=== PATIENT | male | born 1985 | race Two or more races ===

== ENCOUNTER 2017-11-04 02:47 | Emergency (ER) | payer OTHER ==
[2017-11-04 04:18] VITALS: TEMP 99.1; BMI 26.6
--- NOTE | 2017-11-04 04:22 | PDOC ---
Attending Attestation - HPI HPI: 11/04/17 04:34 The patient is a 32 year old male, with a significant past medical history of anxiety and depression, who presents to the emergency department with, 2 days of a headache. As per patient, his headache is localized to the frontal region. The patient also feels dehydrate. He endorses urinary frequency which he claims to be similar a previous episode of a sexually transmitted disease he experienced many years ago. He denies any recent fevers, chills, headache or dizziness. He denies any recent nausea, vomit, diarrhea or constipation. He denies any recent chest pain or shortness of breath. He denies any recent dysuria, urgency or hematuria. Allergies: NKA <GoberdanValeriynie - Last Filed: 11/04/17 04:34> - Resident Resident Name: Marisela Holbrook - ED Attending Attestation I have performed the following: I have examined & evaluated the patient, The case was reviewed & discussed with the resident, I agree w/resident's findings & plan, Exceptions are as noted - Physicial Exam PE: 11/04/17 19:31 *Physical Exam General Appearance: Yes: Appropriately Dressed. No: Apparent Distress, Intoxicated HEENT: positive: EOMI, AC, Normal ENT Inspection, Normal Voice, TMs Normal, Pharynx Normal. negative: Pale Conjunctivae, Photophobia, Scleral Icterus (R), Scleral Icterus (L) Neck: positive: Trachea midline, Normal Thyroid, Supple. negative: Tender, Rigid, Carotid bruit, Stridor, Lymphadenopathy (R), Lymphadenopathy (L), Thyromegaly Respiratory/Chest: positive: Lungs Clear, Normal Breath Sounds. negative: Chest Tender, Respiratory Distress, Accessory Muscle Use, Labored Respiration, RES, Crackles, Rales, Rhonchi, Stridor, Wheezing, Dullness Cardiovascular: positive: Regular Rhythm, Regular Rate, S1, S2. negative: Edema , JVD, Murmur, Bradycardia, Tachycardia Vascular Pulses: Dorsalis-Pedis (R): 2+, Doralis-Pedis (L): 2+ Gastrointestinal/Abdominal: positive: Normal Bowel Sounds, Flat, Soft. negative : Tender, Organomegaly, Pulsatile Mass, Increased Bowel Sounds, Decreased BS, Distended, Guarding, Rebound, Hernia, Hepatomegaly, Spleenomegaly Lymphatic: negative: Adenopathy, Tenderness Musculoskeletal: positive: Normal Inspection. negative: CVA Tenderness, Decreased Range of Motion Extremity: positive: Normal Capillary Refill, Normal Inspection, Normal Range of Motion, Pelvis Stable. negative: Tender, Pedal Edema, Swelling, Erythema Integumentary: positive: Normal Color, Dry, Warm. 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 negative: EOM Palsy, Facial Droop, Sensory Deficit - Medical Decision Making 11/04/17 19:32 patient was treated and released <Reese Wilson - Last Filed: 11/04/17 19:32> Attestations - Attestations 11/04/17 04:34 Documentation prepared by Yolanda Boland, acting as nurses medical assistants phlebotomists for Reese Wilson DO. <Yolanda Boland - Last Filed: 11/04/17 04:34>
[2017-11-04] MEDS ORDERED: IBUPROFEN 400 MG TABLET (FP) PO ONE ×2 (04:25→04:33)
[2017-11-04] MEDS ORDERED: SODIUM CHLORIDE 0.9% 500 ML INFUS.BAG IV ONE (04:25)
[2017-11-04] MEDS ORDERED: ONDANSETRON *ODT* 4 MG TABLET SL ONE (04:32)
--- NOTE | 2017-11-04 04:44 | PDOC ---
History of Present Illness - General Chief Complaint: Headache Stated Complaint: HEADACHE Time Seen by Provider: 11/04/17 03:53 - History of Present Illness Initial Comments: Ten Walter is a 32yo man with a PMH of depression/anxiety, hiatal hernia s/p repair with Ragsdale's esophagus, self-reported ANJEL (never tested) who presents with severe frontal headache, subjective thirst, and urinary frequency for the past several days. He reports that when he woke up this morning his headache was especially severe. He took excedrin in the morning as well as motrin in the afternoon without any improvement. He states that the pain is severe to the point that he feels like he "almost needs to throw up." He denies any episodes of vomiting. He has not had light or sound sensitivity. He describes the headache as a throbbing, non-radiating pain. Mr Walter did have recent ear and throat pain, but this resolved prior to the current headache. He denies any current nasal/sinus congestion, runny nose, sore throat, or difficultly breathing. He does have an occasional dry cough. He also endorses frequent acid reflux; he has not had heartburn since his hiatal hernia repair 2 years ago, but it has recently recurred. He also mentions several times that he has a history of anxiety and was very worried that his headache had been present for several days. He denies any constitutional symptoms, and specifically has not had any fever, shaking chills, or general malaise. In addition to the headache, he notes feeling very dry though he has been drinking "a lot" of water recently. He also reports urinary frequency, and states that he needs to urinate 2x-3x more than normal. Mr Walter reports that he had a similar symptom of urinary frequency when diagnosed with GC/chlamydia as a teenager and requests to be tested today. He denies any penile discharge, lesions, rash, swelling, or pain. Past History - Past Medical History Allergies/Adverse Reactions: Allergies Allergy/AdvReac Type Severity Reaction Status Date / Time metoclopramide HCl Allergy Verified 11/04/17 04:15 [From Reglan] Penicillins Allergy Verified 11/04/17 04:15 Home Medications: Ambulatory Orders Doxycycline Monohydrate [Mondoxyne Nl] 100 mg PO BID #20 capsule 11/04/17 - Surgical History Abdominal Surgery: Yes (HIATEL HERNIA) Cholecystectomy: Yes - Suicide/Smoking/Psychosocial Hx Smoking History: Never smoked Have you smoked in the past 12 months: No Information on smoking cessation initiated: No Hx Alcohol Use: No Drug/Substance Use Hx: No Review of Systems - Review of Systems Comments:: General: No fevers, no chills, no weight or appetite change, no malaise HEENT: No changes in vision, no changes in hearing, no congestion, no sore throat CV: No chest pain, no palpitations, no LE edema Pulm: No SOB, no wheezing. +Dry cough GI: No nausea or vomiting, no change in bowel habits, no melena. +frequent heartburn, +h/o hiatal hernia : No urgency, no dysuria. +h/o frequency Musc: No back pain, no joint swelling, no recent injury Skin: No rash, no lesions, no erythema Endo: no heat/cold intolerance. +h/o increased thirst Heme: No unusual bruising or bleeding, no swollen glands Neuro: No syncope, no numbness/tingling, no focal weakness Vasc: No claudication Psych: +h/o anxiety, +h/o depression. No SI, no HI. *Physical Exam - Vital Signs Last Vital Signs Temp Pulse Resp BP Pulse Ox 99.1 F 85 20 157/84 98 11/04/17 02:55 11/04/17 02:55 11/04/17 02:55 11/04/17 02:55 11/04/17 02:55 - Physical Exam Comments: General: Comfortable, no acute distress HEENT: PERRL, EOMI, MMM, voice normal, normal neck ROM, no LAD Cards: RRR, no murmur appreciated Pulm: Comfortable on room air, clear to auscultation bilaterally Abd: Soft, nontender, nondistended Ext: Atraumatic. No LE edema. ROM intact. Strength 5/5 and equal bilaterally Vasc: Extremities WWP. Palpable radial and pedal pulses bilaterally Neuro: A&Ox3, CN grossly intact, normal speech, motor/sensory grossly intact and symmetric Psych: Mood appropriate to situation Medical Decision Making - Medical Decision Making 11/04/17 04:46 Ten Walter is a 32yo man with a PMH of anxiety, depression, hiatal hernia s/p repair and Ragsdale's esophagus who presents today complaining of frontal headache for 3 days in addition to urinary frequency and increased thirst. - No s/s of URI or sinus infection on history or physical exam. No light/sound intolerance suggesting migraine. Most likely a tension headache. Ibuprofen and zofran ordered as he is c/o mild nausea in additional to DUMONT pain - Feels subjectively dehydrated though does not appear dry on exam. 1L NS bolus ordered; slight dehydration could be contributing to headache - UA ordered due to complaint of frequency, though no other symptoms to suggest UTI. GC/chlamydia ordered per request. Given excessive thirst and urination, can also r/o signs of DM based on UA results. - Will reassess following meds. 11/04/17 06:45 - Feels improved following ibuprofen, zofran, fluid bolus - UA with 48 WBC, +leuk esterase. GC/chylamydia pending. Given rarity of uncomplicated UTI in a young man, will treat for GC/chlamydia - Pen allergic - 1g azithromycin, 100mg doxycycline given in the ED. Will prescribe 10 days doxycycline at home. - Discussed with patient, advised to inform sexual partners. Will need to call or follow up for results. - Mr Walter reports understanding and agrees with this plan. Seen and discussed with Dr Wilson. *DC/Admit/Observation/Transfer Diagnosis at time of Disposition: UTI (urinary tract infection) Qualifiers: Urinary tract infection type: site unspecified Hematuria presence: without hematuria Qualified Code(s): N39.0 - Urinary tract infection, site not specified - Discharge Dispostion Disposition: HOME Condition at time of disposition: Good Decision to Admit order: No - Prescriptions Prescriptions: Doxycycline Monohydrate [Mondoxyne Nl] 100 mg PO BID #20 capsule - Referrals Referrals: Weston Fountain MD [Staff Physician] - - Patient Instructions Printed Discharge Instructions: DI for Urinary Tract Infection (UTI), DI for Chlamydia, DI for Gonorrhea Additional Instructions: Discharge Instructions: - You were seen in the ED for headache, urinary frequency, and thirst. - Your urine test showed a likely infection. It is unclear what cause this infection, and some test results are not back yet. You were started on antibiotics before discharge, and you will need to continue antibiotics for the next 10 days. Please finish this prescription even if you feel better. - You will need to call or return to [facility] to get your gonorrhea and chlamydia test results. Please remember to inform any sexual partners if these tests are positive. - Your headache may be related to the infection or to tension. You may take 600mg ibuprofen (advil, motrin) every 8 hours. This may be alternated with acetaminophen (tylenol) if needed for additional pain control. If your headaches continue, please see your primary physician within the next 1-2 weeks. - Return to the ED if your symptoms do not improve, you have fevers to 101F or shaking chills, or you notice blood in your urine. - Post Discharge Activity
[2017-11-04] MEDS ORDERED: ONDANSETRON *ODT* 4 MG TABLET ONE (05:40)
[2017-11-04 05:44] LABS: URINE APPEARANCE CLEAR; URINE BILIRUBIN NEGATIVE (<2.0 mg/dL); URINE COLOR LTYELLOW; URINE GLUCOSE (UA) NEGATIVE (NEGATIVE); URINE KETONE NEGATIVE (NEGATIVE); URINE NITRITE NEGATIVE (NEGATIVE); URINE PROTEIN NEGATIVE (NEGATIVE); URINE UROBILINOGEN NEGATIVE mg/dL (0.2-1.0)
[2017-11-04 05:48] LABS: URINE LEUK ESTERASE 1+ (NEGATIVE)
[2017-11-04 05:50] LABS: URINE BACTERIA FEW /hpf (NONE SEEN); URINE MUCUS RARE
[2017-11-04] MEDS ORDERED: AZITHROMYCIN 1 GM PACKET PO ONE (06:42)
[2017-11-04] MEDS ORDERED: DOXYCYCLINE HYCLATE 100 MG CAPSULE PO ONE ×2 (06:43→06:54)
[2017-11-04] MEDS ORDERED: AZITHROMYCIN 250 MG TABLET ONE (06:54)
[2017-11-04 07:38] VITALS: BP 138/93; PULSE 79
== END 2017-11-04 07:38 | disposition home or self-care (01) ==
LOC: JER 02:47
PROC: 3E0337Z Introduction of Electrolytic and Water Balance Substance into Peripheral Vein, Percutaneous Approach (ICD-10-PCS; principal; 2017-11-04)
DX: N39.0 Urinary tract infection, site not specified (principal); K22.70 Barrett's esophagus without dysplasia; F41.8 Other specified anxiety disorders
CPT/HCPCS: 36415; 81003; 81015; 87491; 87591; 99281-25; Q0162

== ENCOUNTER 2018-03-22 14:06 | Emergency (ER) | payer SELFPAY ==
[2018-03-22 14:18] VITALS: BP 131/80; PULSE 97; TEMP 98.2; BMI 26.9
--- NOTE | 2018-03-22 14:25 | PDOC ---
History of Present Illness - General Chief Complaint: Injury Stated Complaint: INJURY Time Seen by Provider: 03/22/18 14:25 History Source: Patient Exam Limitations: No Limitations - History of Present Illness Initial Comments: 03/22/18 15:01 32 yo M w/ no sig PMHx comes in c/o 1 week of R foot pain. Pt was playing basketball and twisted his R foot, heard a pop but thought the pain would go away. Pain is worse with ambulation, no numbness/tingling, no weakness, no knee pain, no ankle pain, no other injury, denies head trauma. Pt has not taken any meds for pain at home. 03/22/18 15:33 Past History - Past Medical History Allergies/Adverse Reactions: Allergies Allergy/AdvReac Type Severity Reaction Status Date / Time metoclopramide HCl Allergy Verified 03/22/18 14:26 [From Reglan] Penicillins Allergy Verified 03/22/18 14:26 Home Medications: Ambulatory Orders NK [No Known Home Medication] 03/22/18 COPD: No - Surgical History Abdominal Surgery: Yes (HIATEL HERNIA) Cholecystectomy: Yes - Suicide/Smoking/Psychosocial Hx Smoking History: Never smoked Have you smoked in the past 12 months: No Information on smoking cessation initiated: No Hx Alcohol Use: No Drug/Substance Use Hx: No Review of Systems - Review of Systems Able to Perform ROS?: Yes Constitutional: No: Chills, Fever, Malaise, Night Sweats HEENTM: No: Eye Pain, Recent change in vision, Throat Pain Respiratory: No: Cough, Shortness of Breath Cardiac (ROS): No: Chest Pain, Palpitations, Chest Tightness ABD/GI: No: Diarrhea, Nausea, Vomiting, Abdominal cramping : No: Dysuria, Hematuria Musculoskeletal: No: Back Pain Integumentary: No: Rash Neurological: No: Headache, Numbness, Dizziness Psychiatric: No: Change in Appetite Endocrine: No: Unexplained Weight Loss *Physical Exam - Vital Signs Last Vital Signs Temp Pulse Resp BP Pulse Ox 98.2 F 97 H 16 131/80 98 03/22/18 14:06 03/22/18 14:06 03/22/18 14:06 03/22/18 14:06 03/22/18 14:06 - Physical Exam General Appearance: Yes: Nourished. No: Apparent Distress HEENT: positive: AC, Normal ENT Inspection, Normal Voice. negative: Pale Conjunctivae, Scleral Icterus (R), Scleral Icterus (L) Neck: positive: Supple. negative: Decreased range of motion, Tender midline Respiratory/Chest: negative: Respiratory Distress, Accessory Muscle Use Cardiovascular: positive: Regular Rate Musculoskeletal: positive: Normal Inspection, Other (R foot with mild bruising and tenderness laterally near tarsal bones, no skin breaks. FROM R foot and R ankle. R ankle without tenderness, no swelling, 5/5 strength. RLE full sensory function. NVI. Good cap refill, good pulses. R knee without swelling, no tenderness, FROM). negative: Decreased Range of Motion Extremity: positive: Normal Capillary Refill, Normal Inspection, Normal Range of Motion. negative: Tender, Pedal Edema Integumentary: positive: Normal Color, Dry. negative: Jaundice, Rash Neurologic: positive: Fully Oriented, Alert, Normal Mood/Affect Moderate Sedation - Procedure Monitoring Vital Signs: Procedure Monitoring Vital Signs Temperature 98.2 F 03/22/18 14:06 Pulse Rate 97 H 03/22/18 14:06 Respiratory Rate 16 03/22/18 14:06 Blood Pressure 131/80 03/22/18 14:06 O2 Sat by Pulse Oximetry (%) 98 03/22/18 14:06 Medical Decision Making - Medical Decision Making 03/22/18 15:43 32 yo M with foot injury s/p playing basketball, will do a foot xrayt, give motrin and reassess 03/22/18 15:59 Xrays negative. Pt placed in Jim wrap ortho follow up PRN Return for worsening/concerning symptoms WBAT Motrin as needed for pain Pt verbalizes understanding and agrees with plan *DC/Admit/Observation/Transfer Diagnosis at time of Disposition: Injury of foot Qualifiers: Encounter type: initial encounter Laterality: right Qualified Code(s): S99.921A - Unspecified injury of right foot, initial encounter - Referrals Referrals: ON STAFF,NOT [Primary Care Provider] - Sheldon Maneul DO [Staff Physician] - - Patient Instructions Additional Instructions: You may take ibuprofen 600mg 3 times a day as needed for pain and inflammation. Return for worsening/concerning symptoms. Make an appointment with the orthopedist next week, for reassessment. - Post Discharge Activity
[2018-03-22] MEDS ORDERED: IBUPROFEN 600 MG TABLET (FP) PO ONE ×2 (14:33→14:38)
== END 2018-03-22 16:25 | disposition home or self-care (01) ==
LOC: JER 14:06
DX: S99.922A Unspecified injury of left foot, initial encounter (principal); X50.1XXA Overexertion from prolonged static or awkward postures, initial encounter; Y93.67 Activity, basketball; Y92.310 Basketball court as the place of occurrence of the external cause; Y99.8 Other external cause status
CPT/HCPCS: 73630-TC-RT-FY; 99281-25

== ENCOUNTER 2018-06-23 01:07 | Emergency (ER) | payer OTHER ==
[2018-06-23 02:05] VITALS: BP 160/93; PULSE 99; TEMP 98.1; BMI 26.6
--- NOTE | 2018-06-23 02:12 | PDOC ---
*Physical Exam - Vital Signs Last Vital Signs Temp Pulse Resp BP Pulse Ox 98.1 F 99 H 18 160/93 99 06/23/18 01:20 06/23/18 01:20 06/23/18 01:20 06/23/18 01:20 06/23/18 01:20 ED Treatment Course - LABORATORY CBC & Chemistry Diagram: 06/23/18 02:43 06/23/18 02:43 Medical Decision Making - Medical Decision Making 06/23/18 02:12 Patient seen by the advanced practice provider under my direct supervision. Ancillary testing reviewed as necessary. I agree with plan as outlined by the advanced practice provider. *DC/Admit/Observation/Transfer Diagnosis at time of Disposition: Atypical chest pain - Discharge Dispostion Disposition: HOME Condition at time of disposition: Stable - Referrals - Patient Instructions Printed Discharge Instructions: DI for Atypical Chest Pain Additional Instructions: Low-salt diet. Keep well-hydrated. Make an appointment with her primary doctor for reevaluation of your chest pain. Return to emergency department for any new or worsening symptoms. The gonorrhea and chlamydia testing will not be completed for the next few days. You may call and leave message for return phone call with lab results. Be sure to be clear with your name, birthdate, and phone number Always use condoms with the partners - Post Discharge Activity
[2018-06-23] MEDS ORDERED: ASPIRIN 81 MG CHEWABLE TABLETS PO ONE (02:21)
--- NOTE | 2018-06-23 02:21 | PDOC ---
History of Present Illness - General Chief Complaint: Chest Pain Stated Complaint: CHEST PAIN,NUMBNESS,SOB Time Seen by Provider: 06/23/18 02:02 History Source: Patient Exam Limitations: No Limitations - History of Present Illness Initial Comments: 06/23/18 02:15 HISTORY OF PRESENT ILLNESS: This 32-year-old male past medical history of anxiety and depression who presents emergency department for evaluation of diffuse chest pain which started on 06/17. Patient reports the pain came on as a pressure and has occasional sharp sensations. Patient reports the pain is accompanied by occasional nausea. Patient reports the pain is different than his usual anxiety attack was concerned that he has had no relief of symptoms. Patient sought care at another emergency department yesterday the left prior to evaluation. Patient is also concerned that he has intermittent hand stiffness and a pins and needle sensation. The sensation lasts for a brief period of time and then spontaneously resolves. Patient denies any maternal family history of early heart disease. Patient is unsure of father's family history. Patient also reports increased urinary frequency and a tingling sensation when he ejaculates. Patient is requesting gonorrhea and chlamydia testing. No recent travel or sick contacts. PAST MEDICAL HISTORY: see HPI SURGICAL HISTORY: Denies ALLERGIES: Penicillin, Reglan REVIEW OF SYSTEMS General/Constitutional: Denies fever or chills. Denies weakness, weight change. HEENT: Denies change in vision. Denies ear pain or discharge. Denies sore throat. Cardiovascular: see HPI Respiratory: Denies cough, wheezing, or hemoptysis. Gastrointestinal: Denies nausea, vomiting, diarrhea or constipation. Denies rectal bleeding. Genitourinary: Denies dysuria, frequency, or change in urination. Musculoskeletal: Denies joint or muscle swelling or pain. Denies neck or back pain. Skin and breasts: Denies rash or easy bruising. Neurologic: Denies headache, vertigo, loss of consciousness, or loss of sensation. Psychiatric: Denies depression or anxiety. Endocrine: Denies increased thirst. Denies abnormal weight change. Hematologic/Lymphatic: Denies anemia, easy bleeding, or history of blood clots. Allergic/Immunologic: Denies hives or skin allergy. Denies latex allergy. PHYSICAL EXAM General Appearance: Well-appearing, appropriately dressed. No apparent distress , no intoxication. HEENT: EOMI, PERRLA, normal ENT inspection, normal voice, TMs normal, pharynx normal. No conjunctival pallor. No photophobia, scleral icterus. Neck: Supple. Trachea midline. No tenderness, rigidity, carotid bruit, stridor , lymphadenopathy, or thyromegaly. Respiratory/Chest: Lungs CTAB. No shortness of breath, chest tenderness, respiratory distress, accessory muscle use. No crackles, rales, rhonchi, stridor , wheezing, dullness Cardiovascular: RRR. S1, S2. No JVD, murmur, bradycardia, tachycardia. Vascular Pulses: Dorsalis-Pedis (R): 2+, Dorsalis-Pedis (L): 2+ Gastrointestinal/Abdominal: Normal bowel sounds. Abdomen soft, non-distended. No tenderness or rebound tenderness. No organomegaly, pulsatile mass, guarding, hernia, hepatomegaly, splenomegaly. Genital: Uncircumcised penis. No discharge or drainage from urinary meatus. Testicular exam reveals no erythema masses or lesions present. Cremasteric reflex present bilaterally Lymphatic: No adenopathy, tenderness. Musculoskeletal/Extremities: Normal inspection. FROM of all extremities, normal capillary refill. Pelvis Stable. No CVA tenderness. No tenderness to extremities, pedal edema, swelling, erythema or deformity. Integumentary: Appropriate color, dry, warm. 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 Fully oriented, alert. Appropriate mood/affect. Motor strength 5/5. No appreciable EOM palsy, facial droop or sensory deficit. Presenting Symptoms: Chest Pain Timing/Duration: reports: constant Severity/Quality: reports: aching, sharp Location: reports: central Chest Pain Radiation: reports: no radiation Activities at Onset: reports: none Prior Chest Pain/Cardiac Workup: reports: No prior chest pain Nitro Today/Relief: Yes: no nitro taken today Aspirin Received prior to arrival (Core Measure): Yes: no aspirin today Beta Rut given by EMS (Core Measure): No Beta Rut taken at Home (Core Measure): No Past History - Past Medical History Allergies/Adverse Reactions: Allergies Allergy/AdvReac Type Severity Reaction Status Date / Time metoclopramide HCl Allergy Verified 06/23/18 02:04 [From Reglan] Penicillins Allergy Verified 06/23/18 02:04 Home Medications: Ambulatory Orders NK [No Known Home Medication] 03/22/18 COPD: No - Surgical History Abdominal Surgery: Yes (HIATEL HERNIA) Cholecystectomy: Yes - Suicide/Smoking/Psychosocial Hx Smoking History: Never smoked Have you smoked in the past 12 months: No Information on smoking cessation initiated: No Hx Alcohol Use: No Drug/Substance Use Hx: No *Physical Exam - Vital Signs Last Vital Signs Temp Pulse Resp BP Pulse Ox 98.1 F 99 H 18 160/93 99 06/23/18 01:20 06/23/18 01:20 06/23/18 01:20 06/23/18 01:20 06/23/18 01:20 Heart Score/ECG Review - History History: Slightly suspicious - Electrocardiogram EKG: Normal - Age Age: </= 45 - Risk Factors Based on the list above the patient has:: No risk factors known - Troponin Troponin: </= normal limit - Score Heart Score - Total: 0 - ECG Intrepretation Rhythm: Regular Rhythm ED Treatment Course - LABORATORY CBC & Chemistry Diagram: 06/23/18 02:43 06/23/18 02:43 - ADDITIONAL ORDERS Additional order review: Laboratory Results 06/23/18 06/23/18 06/23/18 03:16 02:43 02:43 PT with INR 12.60 INR 1.07 Sodium 140 Potassium 4.8 Chloride 103 Carbon Dioxide 29 Anion Gap 8 BUN 15 Creatinine 1.0 Creat Clearance w eGFR 86.06 Random Glucose 100 Calcium 9.1 Magnesium 2.0 Total Bilirubin 0.3 AST 32 ALT 49 Alkaline Phosphatase 91 Creatine Kinase 100 Troponin I < 0.02 Total Protein 8.0 Albumin 4.4 Urine Color Yellow Urine Appearance Clear Urine pH 5.5 Ur Specific [place] 1.023 Urine Protein Negative Urine Glucose (UA) Negative Urine Ketones Trace H Urine Blood Negative Urine Nitrite Negative Urine Bilirubin Negative Urine Urobilinogen 0.2 Ur Leukocyte Esterase Trace Urine WBC (Auto) 7 Urine RBC (Auto) 1 Urine Casts (Auto) 4 U Epithel Cells (Auto) 0.6 Urine Bacteria (Auto) 0.7 06/23/18 02:43 RBC 5.10 MCV 89.9 MCHC 33.3 RDW 13.7 MPV 8.9 Neutrophils % 40.8 L Lymphocytes % 48.3 H Monocytes % 7.3 Eosinophils % 2.5 Basophils % 1.1 - RADIOLOGY Radiology Studies Ordered: Category Date Time Status CHEST PA & LAT [RAD] Stat Radiology 06/23/18 02:21 Taken - Medications Given in the ED: ED Medications Discontinued Medications Generic Name Dose Route Start Last Admin Trade Name Alejandra PRN Reason Stop Dose Admin Aspirin 325 mg 06/23/18 02:21 06/23/18 03:06 Asa - PO 06/23/18 02:22 325 mg ONCE ONE Administration Medical Decision Making - Medical Decision Making 06/23/18 02:19 A/P: 32-year-old male with chest pain for one week. Differential diagnosis includes but not limited to- GERD, ACS, pneumonia, anxiety, musculoskeletal. Less likely pulmonary embolism as PERC score of 0 Labs including cardiac profile Urinalysis, urine culture and urine GC Chest x-ray EKG Aspirin 325 mg orally now Reassess 06/23/18 04:31 Laboratory testing is unremarkable. Chest x-rays read by me: Angles clear. Cardiac silhouette is within normal limits. No focal infiltrates or consolidations noted. EKG sinus rhythm with rate of 89. Normal intervals present. No T-wave inversions , ST elevations or ST depressions present. I will discharge the patient home to follow-up with his primary doctor for continued evaluation. *DC/Admit/Observation/Transfer Diagnosis at time of Disposition: Atypical chest pain - Discharge Dispostion Disposition: HOME Condition at time of disposition: Stable Decision to Admit order: No - Referrals - Patient Instructions Printed Discharge Instructions: DI for Atypical Chest Pain Additional Instructions: Low-salt diet. Keep well-hydrated. Make an appointment with her primary doctor for reevaluation of your chest pain. Return to emergency department for any new or worsening symptoms. The gonorrhea and chlamydia testing will not be completed for the next few days. You may call and leave message for return phone call with lab results. Be sure to be clear with your name, birthdate, and phone number Always use condoms with the partners - Post Discharge Activity
[2018-06-23 03:04] LABS: BASO % 1.1 % (0-2.0); EOS % 2.5 % (0-4.5); HEMATOCRIT 45.9 % (35.4-49); HEMOGLOBIN 15.3 GM/dL (11.7-16.9); LYMPH % 48.3 % (8-40); MCH 29.9 pg (25.7-33.7); MCHC 33.3 g/dl (32.0-35.9); MEAN CELL VOLUME 89.9 fl (80-96); MEAN PLT VOLUME 8.9 fl (7.5-11.1); MONO % 7.3 % (3.8-10.2); NEUT % 40.8 % (42.8-82.8); PLATELET COUNT 240 K/MM3 (134-434); RDW 13.7 % (11.9-15.9); WHITE BLOOD COUNT 7.4 K/mm3 (4.0-10.0)
[2018-06-23] MEDS ORDERED: ASPIRIN 325 MG TABLET ONE (03:05)
[2018-06-23 03:20] LABS: INR 1.07 (0.83-1.09); PROTHROMBIN TIME (PATIENT) 12.6 SEC (9.7-13.0)
[2018-06-23 03:34] LABS: EPI CELLS 0.6 /HPF (0-5); PH,URINE 5.5 (5.0-8.0); URINE APPEARANCE CLEAR; URINE BACTERIA 0.7 /hpf (NEGATIVE); URINE BILIRUBIN NEGATIVE (NEGATIVE); URINE CASTS 4 /hpf (0-8); URINE COLOR YELLOW; URINE GLUCOSE (UA) NEGATIVE (NEGATIVE); URINE KETONE TRACE (NEGATIVE); URINE LEUK ESTERASE TRACE (NEGATIVE); URINE NITRITE NEGATIVE (NEGATIVE); URINE PROTEIN NEGATIVE (NEGATIVE); URINE RBC 1 /hpf (0-4); URINE UROBILINOGEN 0.2 mg/dL (0.2-1.0); URINE WBC 7 /hpf (0-5)
[2018-06-23 03:38] LABS: ALBUMIN 4.4 g/dl (3.4-5.0); ALK PHOS 91 U/L (45-117); ANION GAP 8 MMOL/L (8-16); BILIRUBIN,TOTAL 0.3 mg/dL (0.2-1); BLOOD UREA NITROGEN 15 mg/dL (7-18); CALCIUM 9.1 mg/dL (8.5-10.1); CHLORIDE 103 mmol/L (98-107); CO2 29 mmol/L (21-32); GLUCOSE,RANDOM 100 mg/dL (74-106); POTASSIUM 4.8 mmol/L (3.5-5.1); SGOT/AST 32 U/L (15-37); SGPT/ALT 49 U/L (13-61); SODIUM 140 mmol/L (136-145)
--- NOTE | 2018-06-23 11:51 | EKG ---
Test Reason : Blood Pressure : / mmHG Vent. Rate : 089 BPM Atrial Rate : 089 BPM P-R Int : 134 ms QRS Dur : 090 ms QT Int : 344 ms P-R-T Axes : 053 004 051 degrees QTc Int : 418 ms NORMAL SINUS RHYTHM INDETERMINATE AXIS CANNOT RULE OUT INFERIOR INFARCT , AGE UNDETERMINED ABNORMAL ECG WHEN COMPARED WITH ECG OF 04-JUL-2015 08:59, NO SIGNIFICANT CHANGE WAS FOUND Confirmed by LETTY DE LEÓN, MIRANDA ([id number]) on 06/23/2018 11:51:07 AM Referred By: Confirmed By:MIRANDA SAENZ MD
== END 2018-06-23 05:49 | disposition home or self-care (01) ==
LOC: JER 01:07
DX: R07.89 Other chest pain (principal); Z86.59 Personal history of other mental and behavioral disorders; Z88.8 Allergy status to other drugs, medicaments and biological substances
CPT/HCPCS: 36415; 71046-TC-FY; 80053; 81003; 82550; 83735; 84484; 85025; 85610; 87086; 87491; 87591; 93005; 93010; 99282-25

== ENCOUNTER 2018-10-05 19:09 | Emergency (ER) | payer OTHER ==
[2018-10-05] MEDS ORDERED: ACETAMINOPHEN 500 MG TABLET (FP) PO ONE (19:26)
--- NOTE | 2018-10-05 19:26 | PDOC ---
Rapid Medical Evaluation Time Seen by Provider: 10/05/18 19:25 Medical Evaluation: Allergies Allergy/AdvReac Type Severity Reaction Status Date / Time metoclopramide HCl Allergy Verified 06/23/18 02:04 [From [facility]] Penicillins Allergy Verified 06/23/18 02:04 10/05/18 19:25 HPI: Headache since yesterday no help with ES excedrin PE: No gross deficits ORDERS: Tylenol Discharge Disposition - Diagnosis Headache - Referrals - Patient Instructions - Post Discharge Activity
[2018-10-05 19:31] VITALS: BP 168/91; PULSE 110; TEMP 98.5; BMI 25.1
[2018-10-05] MEDS ORDERED: KETOROLAC TROMETHAMINE 30 MG/1 ML VIAL IM ONE (20:10)
[2018-10-05] MEDS ORDERED: KETOROLAC TROMETHAMINE 30 MG/1 ML VIAL ONE (20:14)
--- NOTE | 2018-10-05 20:16 | PDOC ---
History of Present Illness - General Chief Complaint: Headache Stated Complaint: FEVER/HEADACHE Time Seen by Provider: 10/05/18 19:25 History Source: Patient Exam Limitations: No Limitations - History of Present Illness Initial Comments: 10/05/18 20:11 HISTORY OF PRESENT ILLNESS: 33-year-old male past medical history of anxiety and depression presents emergency department for evaluation of frontal headache for the past 2 days. Patient reports his pain is a sharp constant pain rated 9/ 10. Patient reports he took Motrin this morning which decreased his headache from 10/10. Patient denies any fevers, chills, dizziness, blurry vision, difficulty walking, chest pain, shortness of breath, abdominal pain. No recent travel or sick contacts. PAST MEDICAL HISTORY: see HPI SURGICAL HISTORY: Denies ALLERGIES: No known drug allergies REVIEW OF SYSTEMS General/Constitutional: Denies weakness, weight change. HEENT: Denies change in vision. Denies ear pain or discharge. +sore throat. Cardiovascular: Denies chest pain or shortness of breath. Respiratory: Denies cough. Denies wheezing, or hemoptysis. Gastrointestinal: Denies nausea, vomiting, diarrhea or constipation. Denies rectal bleeding. Genitourinary: Denies dysuria, frequency, or change in urination. Musculoskeletal: +myalgias. Denies neck or back pain. Skin and breasts: Denies rash or easy bruising. Neurologic: see HPI Psychiatric: Denies depression or anxiety. Endocrine: Denies increased thirst. Denies abnormal weight change. Hematologic/Lymphatic: Denies anemia, easy bleeding, or history of blood clots. Allergic/Immunologic: Denies hives or skin allergy. Denies latex allergy. PHYSICAL EXAM General Appearance: Well-appearing, appropriately dressed. No apparent distress , no intoxication. HEENT: EOMI, PERRLA, normal voice, TMs retracted bilaterally. No conjunctival pallor. No photophobia, scleral icterus. Oropharynx erythematous without lesions or exudate. Cobblestoning noted in the posterior. No nasal discharge present. Neck: Supple. Trachea midline. No tenderness, rigidity, carotid bruit, stridor , or thyromegaly. Nontender anterior cervical lymphadenopathy present. Respiratory/Chest: Lungs CTAB. No shortness of breath, chest tenderness, respiratory distress, accessory muscle use. No crackles, rales, rhonchi, stridor , wheezing, dullness Cardiovascular: RRR. S1, S2. No JVD, murmur, bradycardia, tachycardia. Vascular Pulses: Dorsalis-Pedis (R): 2+, Dorsalis-Pedis (L): 2+ Gastrointestinal/Abdominal: Normal bowel sounds. Abdomen soft, non-distended. No tenderness or rebound tenderness. No organomegaly, pulsatile mass, guarding, hernia, hepatomegaly, splenomegaly. Musculoskeletal/Extremities: Normal inspection. FROM of all extremities, normal capillary refill. Pelvis Stable. No CVA tenderness. No tenderness to extremities, pedal edema, swelling, erythema or deformity. Integumentary: Appropriate color, dry, warm. 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 Fully oriented, alert. Appropriate mood/affect. Motor strength 5/5. No appreciable EOM palsy, facial droop or sensory deficit. 10/05/18 20:14 Past History - Past Medical History Allergies/Adverse Reactions: Allergies Allergy/AdvReac Type Severity Reaction Status Date / Time metoclopramide HCl Allergy Verified 10/05/18 19:31 [facility] Penicillins Allergy Verified 10/05/18 19:31 Home Medications: Ambulatory Orders Azithromycin 250 mg PO ONCE #4 tablet 06/25/18 Azithromycin [Zithromax -] 250 mg PO UTDICT #4 tab 06/25/18 COPD: No - Surgical History Abdominal Surgery: Yes (HIATEL HERNIA) Cholecystectomy: Yes - Suicide/Smoking/Psychosocial Hx Smoking History: Unknown if ever smoked Have you smoked in the past 12 months: No Information on smoking cessation initiated: No Hx Alcohol Use: No Drug/Substance Use Hx: No *Physical Exam - Vital Signs Last Vital Signs Temp Pulse Resp BP Pulse Ox 98.5 F 110 H 16 168/91 97 10/05/18 19:28 10/05/18 19:28 10/05/18 19:28 10/05/18 19:28 10/05/18 19:28 Medical Decision Making - Medical Decision Making 10/05/18 20:14 A/P: 33-year-old male with upper respiratory symptoms Toradol 30 mg IM Tylenol 975 mg orally Discharge home *DC/Admit/Observation/Transfer Diagnosis at time of Disposition: URI (upper respiratory infection) Qualifiers: URI type: unspecified viral URI Qualified Code(s): J06.9 - Acute upper respiratory infection, unspecified - Discharge Dispostion Disposition: HOME Condition at time of disposition: Stable Decision to Admit order: No - Referrals - Patient Instructions Additional Instructions: Rest, drink lots of fluids: Teas, water, soups, Pedialyte Saltwater gargles Steamy showers/seem to face break up mucus Avoid contact with others until fevers and cough resolved Lots of handwashing and good hygiene Continue [id number] medications for symptomatic relief Tylenol or Motrin for fever and pain Followup with private physician in one to 2 days as needed Return to emergency department for worsened symptoms, fevers, dehydration - Post Discharge Activity Forms/Work/School Notes: Back to Work
== END 2018-10-05 20:22 | disposition home or self-care (01) ==
LOC: JERFT 19:09
PROC: 3E0233Z Introduction of Anti-inflammatory into Muscle, Percutaneous Approach (ICD-10-PCS; principal; 2018-10-05)
DX: J06.9 Acute upper respiratory infection, unspecified (principal)
CPT/HCPCS: 99281-25

== ENCOUNTER 2018-11-03 11:54 | Inpatient (IN) | payer OTHER ==
[2018-11-03 11:59] VITALS: BMI 25.4
[2018-11-03] MEDS ORDERED: morphine CARPU-JECT 4 MG/1 ML DISP.SYRIN IVPUSH ONE (13:22)
[2018-11-03] MEDS ORDERED: morphine SULFATE 4 MG/ML VIAL ONE (13:36)
[2018-11-03 13:42] LABS: BASO % 0.3 % (0-2.0); EOS % 1.5 % (0-4.5); HEMATOCRIT 45.5 % (35.4-49); HEMOGLOBIN 15.5 GM/dL (11.7-16.9); LYMPH % 11.6 % (8-40); MCH 30.5 pg (25.7-33.7); MCHC 34.1 g/dl (32.0-35.9); MEAN CELL VOLUME 89.5 fl (80-96); MEAN PLT VOLUME 8.5 fl (7.5-11.1); MONO % 8.1 % (3.8-10.2); NEUT % 78.5 % (42.8-82.8); PLATELET COUNT 264 K/MM3 (134-434); RBC 5.09 M/mm3 (4.00-5.60); RDW 13.6 % (11.9-15.9); WHITE BLOOD COUNT 11.2 K/mm3 (4.0-10.0)
[2018-11-03] MEDS ORDERED: SODIUM CHLORIDE 1,000 ML IV STA (14:09)
[2018-11-03] MEDS ORDERED: HYDROmorphone HCL CARPU-JECT 2 MG/1 ML DISP.SYRIN IVPUSH ONE ×2 (14:09→16:19)
[2018-11-03 14:14] LABS: ALBUMIN 4.4 g/dl (3.4-5.0); BILIRUBIN,TOTAL 1.1 mg/dL (0.2-1); BLOOD UREA NITROGEN 15.8 mg/dL (7-18); CALCIUM 9.5 mg/dL (8.5-10.1); CREATININE 1.1 mg/dL (0.55-1.3); POTASSIUM 4.4 mmol/L (3.5-5.1); TOT PROT 7.9 g/dl (6.4-8.2)
[2018-11-03] MEDS ORDERED: HYDROmorphone HCl 2 MG/ML VIAL ONE ×2 (14:28→16:32)
--- NOTE | 2018-11-03 14:35 | PDOC ---
History of Present Illness - General Chief Complaint: Pain Stated Complaint: ABD. PAIN Time Seen by Provider: 11/03/18 13:03 History Source: Patient Exam Limitations: No Limitations Past History - Past Medical History Allergies/Adverse Reactions: Allergies Allergy/AdvReac Type Severity Reaction Status Date / Time metoclopramide HCl Allergy Verified 11/03/18 11:56 [From Reglan] Penicillins Allergy Verified 11/03/18 11:56 Home Medications: Ambulatory Orders NK [No Known Home Medication] 11/03/18 COPD: No Psychiatric Problems: Yes (depression, anxiety) - Surgical History Abdominal Surgery: Yes (HIATEL HERNIA) Cholecystectomy: Yes - Suicide/Smoking/Psychosocial Hx Smoking History: Never smoked Have you smoked in the past 12 months: No Hx Alcohol Use: No Drug/Substance Use Hx: No *Physical Exam - Vital Signs Last Vital Signs Temp Pulse Resp BP Pulse Ox 98.1 F 114 H 20 139/81 99 11/03/18 11:56 11/03/18 11:56 11/03/18 11:56 11/03/18 11:56 11/03/18 11:56 - Physical Exam General Appearance: Yes: Moderate Distress (due to pain) Respiratory/Chest: positive: Lungs Clear, Normal Breath Sounds. negative: Respiratory Distress Cardiovascular: positive: Regular Rhythm, Regular Rate, S1, S2. negative: Murmur Gastrointestinal/Abdominal: positive: Tender (along RLQ), Soft, Guarding. negative: Distended, Rebound, Mass Musculoskeletal: negative: CVA Tenderness Neurologic: positive: Alert, Normal Mood/Affect ED Treatment Course - LABORATORY CBC & Chemistry Diagram: 11/03/18 13:38 11/03/18 13:38 - ADDITIONAL ORDERS Additional order review: Laboratory Results 11/03/18 13:38 Sodium 136 Potassium 4.4 Chloride 101 Carbon Dioxide 29 Anion Gap 7 L BUN 15.8 Creatinine 1.1 Est GFR (CKD-EPI)AfAm 100.97 Est GFR (CKD-EPI)NonAf 87.12 Random Glucose 92 Calcium 9.5 Total Bilirubin 1.1 H AST 16 ALT 32 Alkaline Phosphatase 101 Total Protein 7.9 Albumin 4.4 11/03/18 13:38 RBC 5.09 MCV 89.5 MCHC 34.1 RDW 13.6 MPV 8.5 Neutrophils % 78.5 D Lymphocytes % 11.6 D Monocytes % 8.1 Eosinophils % 1.5 Basophils % 0.3 - Medications Given in the ED: ED Medications Discontinued Medications Generic Name Dose Route Start Last Admin Trade Name Alejandra PRN Reason Stop Dose Admin Morphine Sulfate 4 mg 11/03/18 13:22 11/03/18 13:39 Morphine Injection - IVPUSH 11/03/18 13:23 4 mg ONCE ONE Administration Medical Decision Making - Medical Decision Making 33 y/o M hx of depression, anxiety, cholecystectomy and hiatal hernia repair 5 years ago (done different times) presents with RLQ abd pain x 2 days along with watery diarrhea. Denies fever, sob, cp, vomiting, urinary complaints, testicular pain, recent travel, sick contacts. Denies drinking alcohol. Concern for possible appendicitis; also consider kidney stones Plan: Labs, pain control, CT A/P 11/03/18 14:33 CT A/P shows appendicitis D/W Dr. Lior dodson admitted to hospitalist service; recommends flagyl and levaquin for now Patient signed out to [employer] [place] [place] for admission 11/03/18 16:24 *DC/Admit/Observation/Transfer Diagnosis at time of Disposition: Appendicitis Qualifiers: Appendicitis type: acute appendicitis Acute appendicitis type: unspecified acute appendicitis type Qualified Code(s): K35.80 - Unspecified acute appendicitis - Discharge Dispostion Decision to Admit order: Yes - Referrals - Patient Instructions - Post Discharge Activity
--- NOTE | 2018-11-03 16:43 | PDOC ---
*Physical Exam - Vital Signs Last Vital Signs Temp Pulse Resp BP Pulse Ox 98.1 F 100 H 18 128/78 100 11/03/18 11:56 11/03/18 16:25 11/03/18 16:25 11/03/18 16:25 11/03/18 16:25 - Physical Exam Comments: 11/03/18 16:42 sign out received from outgoing YAHIR Arcos. 11/07/18 17:32 Patient admitted to hospitalist, taken to OR for acute appy. ED Treatment Course - LABORATORY CBC & Chemistry Diagram: 11/04/18 06:58 11/04/18 06:58 - ADDITIONAL ORDERS Additional order review: Laboratory Results 11/03/18 13:38 Sodium 136 Potassium 4.4 Chloride 101 Carbon Dioxide 29 Anion Gap 7 L BUN 15.8 Creatinine 1.1 Est GFR (CKD-EPI)AfAm 100.97 Est GFR (CKD-EPI)NonAf 87.12 Random Glucose 92 Calcium 9.5 Total Bilirubin 1.1 H AST 16 ALT 32 Alkaline Phosphatase 101 Total Protein 7.9 Albumin 4.4 11/03/18 13:38 RBC 5.09 MCV 89.5 MCHC 34.1 RDW 13.6 MPV 8.5 Neutrophils % 78.5 D Lymphocytes % 11.6 D Monocytes % 8.1 Eosinophils % 1.5 Basophils % 0.3 - Medications Given in the ED: ED Medications Discontinued Medications Generic Name Dose Route Start Last Admin Trade Name Freq PRN Reason Stop Dose Admin Hydromorphone HCl 0.5 mg 11/03/18 14:09 11/03/18 14:36 Dilaudid Injection - IVPUSH 11/03/18 14:10 0.5 mg ONCE ONE Administration Hydromorphone HCl 0.5 mg 11/03/18 16:19 11/03/18 16:35 Dilaudid Injection - IVPUSH 11/03/18 16:20 0.5 mg ONCE ONE Administration Sodium Chloride 1,000 mls @ 1,000 mls/hr 11/03/18 14:09 11/03/18 14:36 Normal Saline - IV 11/03/18 15:08 1,000 mls/hr ASDIR STA Administration Morphine Sulfate 4 mg 11/03/18 13:22 11/03/18 13:39 Morphine Injection - IVPUSH 08/08/19 13:23 4 mg ONCE ONE Administration *DC/Admit/Observation/Transfer Diagnosis at time of Disposition: Appendicitis - Discharge Dispostion Disposition: HOME Condition at time of disposition: Improved Decision to Admit order: Yes - Referrals - Patient Instructions - Post Discharge Activity
--- NOTE | 2018-11-03 16:43 | CONSULT ---
Consult Consult Specialty:: General Surgery Reason for Consultation:: appendicitis - History of Present Illness Chief Complaint: abdominal pain History of Present Illness: 33 yo male PMH anxiety/depression presents to the ED with complaints of abdominal pain (maily RLQ pain that radiated to the groin) that started 2 days ago- patient states that the pain started after he had foreign cuisine food ( [place]) and he attributed the pain to that and thought that is was gas pain so he took some gas-x and tylenol. the pain got worse and he developed some nausea and diarrhea yesterday. however he denies any fevres or chills. today he states that pain was around a 10/10 and he couldn't toelrate it so he came to the ED. he has never had pain like this before; he denies any recent travel or sick contacts. we were called to assess. - History Source History Provided By: Patient, Medical Record Limitations to Obtaining History: No Limitations - Alcohol/Substance Use Hx Alcohol Use: No - Smoking History Smoking history: Never smoked Have you smoked in the past 12 months: No Home Medications - Allergies Allergies/Adverse Reactions: Allergies Allergy/AdvReac Type Severity Reaction Status Date / Time metoclopramide HCl Allergy Verified 11/03/18 11:56 [From Reglan] Penicillins Allergy Verified 11/03/18 11:56 - Home Medications Home Medications: Ambulatory Orders Paroxetine HCl 40 mg PO DAILY 11/03/18 Family Disease History - Family Disease History Family History: Unremarkable Review of Systems - Review of Systems Constitutional: denies: Chills, Fever Eyes: denies: Blind Spots, Recent Change in Vision HENT: denies: Difficult Swallowing, Throat Pain Neck: denies: Decreased ROM, Tenderness Cardiovascular: denies: Chest Pain, Palpitations Respiratory: denies: Cough, SOB Gastrointestinal: denies: Bloating, Melena, Nausea Genitourinary: denies: Discharge, Dysuria Breasts: reports: No Symptoms Reported. denies: Pain Musculoskeletal: denies: Back Pain, Muscle Pain Integumentary: denies: Lesions, Rash Neurological: denies: Seizure, Syncope Endocrine: denies: Unexplained Weight Gain, Unexplained Weight Loss Hematology/Lymphatic: denies: Easily Bruised, Excessive Bleeding Psychiatric: denies: Anxiety, Depression Physical Exam Vital Signs: Vital Signs Temperature 98.1 F 11/03/18 11:56 Pulse Rate 100 H 11/03/18 16:25 Respiratory Rate 18 11/03/18 16:25 Blood Pressure 128/78 11/03/18 16:25 O2 Sat by Pulse Oximetry (%) 100 11/03/18 16:25 Constitutional: Yes: Well Nourished, No Distress, Calm Eyes: Yes: Conjunctiva Clear, EOM Intact HENT: Yes: Atraumatic, Normocephalic Neck: Yes: Supple, Trachea Midline Cardiovascular: Yes: Regular Rate and Rhythm, S1, S2 Respiratory: Yes: Regular, CTA Bilaterally Gastrointestinal: Yes: Normal Bowel Sounds, Soft, Hernia (Right inguinal hernia) , Tenderness (RLQ) ...Rectal Exam: Yes: Deferred Renal/: No: CVA Tenderness - Left, CVA Tenderness - Right Breast(s): No: Mass, Skin Changes Musculoskeletal: No: Joint Swelling, Muscle Pain Extremities: No: Cool, Cyanosis Edema: No Peripheral Pulses WNL: Yes Integumentary: No: Jaundice, Rash Neurological: Yes: Alert, Oriented Psychiatric: Yes: Alert, Oriented Labs: CBC, BMP 11/03/18 13:38 11/03/18 13:38 Imaging - Results Cat Scan: Report Reviewed, Image Reviewed Problem List - Problems (1) Acute appendicitis with localized peritonitis Assessment/Plan: 33yo male with acute appendicitis with localized peritonitis NPO and IVF hydration IV antibiotics Adequate analgesia Discussed with patient risks, benefits and alternatives of laparoscopic possible open appendectomy, including but not limited to bleeding, infection, injury to adjacent structures, leak or injury, intraabdominal abscess, incisional hernia, need for further procedures, ; alternatives include antibiotics, delayed or no surgery - risks of this include failure of nonoperative therapy, perforation, sepsis, recurrence, . Patient desires to proceed with operation - will take to OR for above. Informed consent signed for same. Thank you for the opportunity to participate in the care of this patient. Code(s): K35.30 - ACUTE APPENDICITIS WITH LOC PERITONITIS, W/O PERF OR GANGR Qualifiers: Appendicitis gangrene presence: without gangrene Appendicitis perforation presence: without perforation Appendicitis abscess presence: without abscess Qualified Code(s): K35.30 - Acute appendicitis with localized peritonitis, without perforation or gangrene (2) Abdominal pain in male Code(s): R10.9 - UNSPECIFIED ABDOMINAL PAIN (3) UTI (urinary tract infection) Code(s): N39.0 - URINARY TRACT INFECTION, SITE NOT SPECIFIED Qualifiers: Urinary tract infection type: site unspecified Hematuria presence: without hematuria Qualified Code(s): N39.0 - Urinary tract infection, site not specified (4) RLQ abdominal pain Code(s): R10.31 - RIGHT LOWER QUADRANT PAIN (5) Leukocytosis Code(s): D72.829 - ELEVATED WHITE BLOOD CELL COUNT, UNSPECIFIED Qualifiers: Leukocytosis type: bandemia Qualified Code(s): D72.825 - Bandemia
[2018-11-03] MEDS ORDERED: morphine CARPU-JECT 4 MG/1 ML DISP.SYRIN IVPUSH PRN (16:59)
[2018-11-03] MEDS ORDERED: LACTATED RINGERS SOLUTION 1,000 ML/1,000 ML INFUS.BAG IV SCH ×2 (17:00→19:18)
[2018-11-03] MEDS ORDERED: MORPHINE SULFATE 2 MG/ML VIAL IVPUSH PRN (17:01)
[2018-11-03] MEDS ORDERED: fentaNYL CITRATE 250 MCG/5 ML VIAL ONE (17:07)
[2018-11-03] MEDS ORDERED: SUCCINYLCHOLINE CHLORIDE 200 MG/10 ML SYRINGE ONE (17:07)
[2018-11-03] MEDS ORDERED: MIDAZOLAM HCL 2 MG/2 ML SINGLE DOSE VIAL ONE (17:07)
[2018-11-03] MEDS ORDERED: PROPOFOL 20 ML ONE ×2 (17:07)
[2018-11-03] MEDS ORDERED: DEXAMETHASONE SOD PHOSPHATE 4 MG/1 ML VIAL ONE (17:08)
[2018-11-03] MEDS ORDERED: ONDANSETRON 4 MG/2 ML VIAL IM PRN ×2 (17:17→19:18)
--- NOTE | 2018-11-03 17:17 | HP ---
CHIEF COMPLAINT: abdominal pain PCP: HISTORY OF PRESENT ILLNESS: 33 y..o with PMH of anxiety/depression presents to the ED with complaints of abdominal pain (maily RLQ pain that radiated to the groin) that started 2 days ago- patient states that the pain started after he had foreign cuisine food ( [place]) and he attributed the pain to that and thought that is was gas pain so he took some gas-x and tylenol. the pain got worse and he developed some nausea and diarrhea yesterday. however he denies any fevres or chills. today he states that pain was around a 10/10 and he couldn't toelrate it so he came to the ED. he has never had pain like this before; he denies any recent travel or sick contacts. ER course was notable for: (1) vitals wnl: WBC 11.2 (2)ab/plevis CT shows acute appendicitis (3)given levaquin/flagyl; dilaudid; Recent Travel: denies PAST MEDICAL HISTORY: see above PAST SURGICAL HISTORY: hiatal hernia repair and cholecystectomy 5 years ago Social History: Smoking:denies Alcohol:denies Drugs: denies Family History: mother has HTN and someone on her sdie of the family has ? liver ca Allergies metoclopramide HCl [From Reglan] Allergy (Verified 11/03/18 11:56) Penicillins Allergy (Verified 11/03/18 11:56) HOME MEDICATIONS: Home Medications Medication Instructions Recorded Paroxetine HCl 40 mg PO DAILY 11/03/18 REVIEW OF SYSTEMS CONSTITUTIONAL: Absent: fever, chills, diaphoresis, generalized weakness, malaise, loss of appetite, weight change HEENT: Absent: rhinorrhea, nasal congestion, throat pain, throat swelling, difficulty swallowing, mouth swelling, ear pain, eye pain, visual changes CARDIOVASCULAR: Absent: chest pain, syncope, palpitations, irregular heart rate, lightheadedness , peripheral edema RESPIRATORY: Absent: cough, shortness of breath, dyspnea with exertion, orthopnea, wheezing, stridor, hemoptysis GASTROINTESTINAL: Present: abdominal pain, nausea, diarrhea Absent: abdominal distension, vomiting , constipation, melena, hematochezia GENITOURINARY: Absent: dysuria, frequency, urgency, hesitancy, hematuria, flank pain, genital pain MUSCULOSKELETAL: Absent: myalgia, arthralgia, joint swelling, back pain, neck pain SKIN: Absent: rash, itching, pallor HEMATOLOGIC/IMMUNOLOGIC: Absent: easy bleeding, easy bruising, lymphadenopathy, frequent infections ENDOCRINE: Absent: unexplained weight gain, unexplained weight loss, heat intolerance, cold intolerance NEUROLOGIC: Absent: headache, focal weakness or paresthesias, dizziness, unsteady gait, seizure, mental status changes, bladder or bowel incontinence PSYCHIATRIC: Absent: anxiety, depression, suicidal or homicidal ideation, hallucinations. PHYSICAL EXAMINATION Vital Signs - 24 hr 11/03/18 11/03/18 11:56 16:25 Temperature 98.1 F Pulse Rate 114 H Pulse Rate [ 100 H Apical] Respiratory 20 18 Rate Blood Pressure 139/81 Blood Pressure 128/78 [Left Arm] O2 Sat by Pulse 99 100 Oximetry (%) GENERAL: Awake, alert, in moderate acute distress EYES: PEERLA; EOMI; no scleral icterus NECK:no JVD; no lymphadenopathy. LUNGS: CTA B/L; no rales, rhonchi or wheezing HEART: Regular rate and rhythm, normal S1 and S2 without murmur, rub or gallop. ABDOMEN: Soft, +RLQ tenderness; + mcburney's + rovsings' +BS in all 4 quadrants . MUSCULOSKELETAL: Normal range of motion at all joints. No bony deformities or tenderness. No CVA tenderness. EXTREMITIES: warm; well-perfused no clubbing/cyanosis or edema NEUROLOGICAL: Cranial nerves II-XII intact. Normal speech. Normal gait. PSYCHIATRIC: Cooperative. Good eye contact. Appropriate mood and affect. SKIN: Warm, dry, normal turgor, no rashes or lesions noted, normal capillary refill. Laboratory Results - last 24 hr 11/03/18 11/03/18 13:38 13:38 WBC 11.2 H RBC 5.09 Hgb 15.5 Hct 45.5 MCV 89.5 MCH 30.5 MCHC 34.1 RDW 13.6 Plt Count 264 MPV 8.5 Absolute Neuts (auto) 8.8 H Neutrophils % 78.5 D Lymphocytes % 11.6 D Monocytes % 8.1 Eosinophils % 1.5 Basophils % 0.3 Nucleated RBC % 0 Sodium 136 Potassium 4.4 Chloride 101 Carbon Dioxide 29 Anion Gap 7 L BUN 15.8 Creatinine 1.1 Est GFR (CKD-EPI)AfAm 100.97 Est GFR (CKD-EPI)NonAf 87.12 Random Glucose 92 Calcium 9.5 Total Bilirubin 1.1 H AST 16 ALT 32 Alkaline Phosphatase 101 Total Protein 7.9 Albumin 4.4 ASSESSMENT/PLAN: 33 y..o with PMH of anxiety/depression presents to the ED with complaints of abdominal pain (maily RLQ pain that radiated to the groin) that started 2 days ago found to have acute appendicitis #Acute Appendicitis patient found to have acute appendicitis on CT scan -Dr. Tinajero consulted and patient currently en route to the OR -NPO for now -LR @100mls/hr -morphine 2mg q6H PRN for pain control -Zofran PRN FOR nausea -sine patient has uncomplicated appendicitis no need for pot-op abx -follow surgery recs #Depression/Anxiety patient states he is currently not on medication F/E/N LR @100mls/hr monitor electrolytes NPO for now DVT PPX: SCDS Problem List - Problem (1) Appendicitis Code(s): K37 - UNSPECIFIED APPENDICITIS Qualifiers: Appendicitis type: acute appendicitis Acute appendicitis type: unspecified acute appendicitis type Qualified Code(s): K35.80 - Unspecified acute appendicitis Visit type - Emergency Visit Emergency Visit: Yes Care time: The patient presented to the Emergency Department on the above date and was hospitalized for further evaluation of their emergent condition. - New Patient This patient is new to me today: Yes Date on this admission: 11/03/18 - Critical Care Critical Care patient: No ATTENDING PHYSICIAN STATEMENT I saw and evaluated the patient. I reviewed the resident's note and discussed the case with the resident. I agree with the resident's findings and plan as documented. SUBJECTIVE: OBJECTIVE: ASSESSMENT AND PLAN:
[2018-11-03] MEDS ORDERED: ROCURONIUM BROMIDE 50 MG/5 ML SYRINGE ONE (17:18)
[2018-11-03 17:32] LABS: INR 1.28 (0.83-1.09); PROTHROMBIN TIME (PATIENT) 15.1 SEC (9.7-13.0)
[2018-11-03 17:35] LABS: ACTIVATED PTT 34.8 SECONDS (25.2-36.5)
--- NOTE | 2018-11-03 17:35 | PN ---
Teaching Attending Note Name of Resident: Susannah Ashley ATTENDING PHYSICIAN STATEMENT I saw and evaluated the patient. I reviewed the resident's note and discussed the case with the resident. I agree with the resident's findings and plan as documented. CC; Rt LQ Pain HPI: 33 yrs old male H/O depression s/p Cholycystectomy and Hiatal hernia repiar present with 2 days h/o Rt LQ pain , nausea and episode of diarrhea, also c/o mailaise and poor appetite, no c/o fever, chills, dysuria, symptoms started 2 days aago after eating out sode food intially pain was mild to modertae today am experienced seber pain taht radiates to groin came to Ed for evaluation, in the Ed TWBC 11 K with Left Shift, CT abd shows acute appendicitis no phlegmon surgery is called , patient is schedule for urgent laproscopic appndectomy OBJECTIVE: Vital Signs Period Temp Pulse Resp BP Sys/Felder Pulse Ox Last 24 Hr 98.1 F 100-114 18-20 128-139/78-81 99-100 Young man not in distress c/p Rt LQ pain HEENT: mm moist, no anemia, PERRLA EOMI NECK: No JVd No Bruit CHEST: CTA B/L CVS: s1S2 r no m/g/r ABD: no distention Rt LQ tend++, Guarding +, rebound + BS + EXT: no frances afeet, no calf tenderness PROP DRAWER: AOX3 non focal CBC,CMP WBC 11.2 K/mm3 (4.0-10.0) H 11/03/18 13:38 RBC 5.09 M/mm3 (4.00-5.60) 11/03/18 13:38 Hgb 15.5 GM/dL (11.7-16.9) 11/03/18 13:38 Hct 45.5 % (35.4-49) 11/03/18 13:38 MCV 89.5 fl (80-96) 11/03/18 13:38 MCH 30.5 pg (25.7-33.7) 11/03/18 13:38 MCHC 34.1 g/dl (32.0-35.9) 11/03/18 13:38 RDW 13.6 % (11.9-15.9) 11/03/18 13:38 Plt Count 264 K/MM3 (134-434) 11/03/18 13:38 MPV 8.5 fl (7.5-11.1) 11/03/18 13:38 Absolute Neuts (auto) 8.8 K/mm3 (1.5-8.0) H 11/03/18 13:38 Neutrophils % 78.5 % (42.8-82.8) D 11/03/18 13:38 Lymphocytes % 11.6 % (8-40) D 11/03/18 13:38 Monocytes % 8.1 % (3.8-10.2) 11/03/18 13:38 Eosinophils % 1.5 % (0-4.5) 11/03/18 13:38 Basophils % 0.3 % (0-2.0) 11/03/18 13:38 Nucleated RBC % 0 % (0-0) 11/03/18 13:38 Sodium 136 mmol/L (136-145) 11/03/18 13:38 Potassium 4.4 mmol/L (3.5-5.1) 11/03/18 13:38 Chloride 101 mmol/L (98-107) 11/03/18 13:38 Carbon Dioxide 29 mmol/L (21-32) 11/03/18 13:38 Anion Gap 7 MMOL/L (8-16) L 11/03/18 13:38 BUN 15.8 mg/dL (7-18) 11/03/18 13:38 Creatinine 1.1 mg/dL (0.55-1.3) 11/03/18 13:38 Est GFR (CKD-EPI)AfAm 100.97 11/03/18 13:38 Est GFR (CKD-EPI)NonAf 87.12 11/03/18 13:38 Random Glucose 92 mg/dL (74-106) 11/03/18 13:38 Calcium 9.5 mg/dL (8.5-10.1) 11/03/18 13:38 Total Bilirubin 1.1 mg/dL (0.2-1) H 11/03/18 13:38 AST 16 U/L (15-37) 11/03/18 13:38 ALT 32 U/L (13-61) 11/03/18 13:38 Alkaline Phosphatase 101 U/L (45-117) 11/03/18 13:38 Total Protein 7.9 g/dl (6.4-8.2) 11/03/18 13:38 Albumin 4.4 g/dl (3.4-5.0) 11/03/18 13:38 CT abd; acute appendicitis no phlegmon ASSESSMENT AND PLAN:33 yrs old male H/O depression s/p Cholycystectomy and Hiatal hernia repiar present with 2 days h/o Rt LQ pain ,elevated TWBC CT abd shows acute appendicitis. Problem List - Problems (1) Appendicitis Assessment/Plan: NPo, pain control, recived pre Op abx, surgery consulted schedule for appendectomy, IV hydration, Post Op care as per surgery team. Code(s): K37 - UNSPECIFIED APPENDICITIS Qualifiers: Appendicitis type: acute appendicitis Acute appendicitis type: unspecified acute appendicitis type Qualified Code(s): K35.80 - Unspecified acute appendicitis
[2018-11-03] MEDS ORDERED: ePHEDrine SULFATE 50 MG/1 ML AMPULE ONE (17:50)
[2018-11-03] MEDS ORDERED: GLYCOPYRROLATE 0.2 MG/1 ML VIAL ONE (17:59)
[2018-11-03] MEDS ORDERED: NEOSTIGMINE METHYLSULFATE 0.5 MG/ML - 10 ML MDV ONE (18:00)
[2018-11-03] MEDS ORDERED: BENZOIN TINCTURE SWABSTICK TP ONE (18:04)
[2018-11-03] MEDS ORDERED: BUPIVACAINE HCL/PF 0.5% (5 MG/ML) 30 ML VIAL IJ ONE (18:10)
--- NOTE | 2018-11-03 18:44 | OP ---
Operative Note - Note: Operative Date: 11/03/18 Pre-Operative Diagnosis: acute appendicitis Operation: Laparoscopic appendectomy Findings: inflamed appendix with purulent exudate Post-Operative Diagnosis: Same as Pre-op Surgeon: Smooth Tinajero Anesthesiologist/HEDDLER: Daren Frey Anesthesia: General, Local (0.5% marcaine 10ml) Specimens Removed: appendix Estimated Blood Loss (mls): 5 Drains, Volume Out (mls): 200 (mckee) Fluid Volume Replaced (mls): 800 Operative Report Dictated: Yes
[2018-11-03] MEDS: ACETAMINOPHEN 1000 MG/100 ML VIAL (NON FORMULARY) IVPB ONE ×2 (19:20→21:24)
[2018-11-03] MEDS ORDERED: ACETAMINOPHEN INJECTION 100 ML IVPB ONE (19:24)
[2018-11-03] MEDS ORDERED: KETOROLAC TROMETHAMINE 30 MG/1 ML VIAL ONE (19:24)
[2018-11-03] MEDS: KETOROLAC TROMETHAMINE 30 MG/1 ML VIAL IVPUSH ONE (19:30)
[2018-11-03] MEDS: METOPROLOL TARTRATE 5 MG/5 ML VIAL IVPUSH ONE (19:40)
[2018-11-03] MEDS ORDERED: METOPROLOL TARTRATE 5 MG/5 ML VIAL ONE (20:11)
--- NOTE | 2018-11-03 20:20 | OP ---
DATE OF OPERATION: 11/03/2018 PREOPERATIVE DIAGNOSIS: Acute appendicitis with localized peritonitis, right lower quadrant. POSTOPERATIVE DIAGNOSIS: Acute appendicitis with localized peritonitis, right lower quadrant. PROCEDURE: Laparoscopic appendectomy. ATTENDING SURGEON: Smooth Tinajero MD ASSISTANT OFFICE MANAGER: No one. ANESTHESIA: Daren Frey MD ANESTHESIA TYPE: General with local. Local consisted of 0.5% Marcaine, a total of 10 mL given in area block fashion at the port sites. ESTIMATED BLOOD LOSS: 5 mL. IV FLUID ADMINISTERED: 800 mL. DRAINAGE: 200 mL of clear urine from the Lopez, operative note as dictated. SPECIMEN: Appendix. BRIEF FINDINGS: The patient had an inflamed appendix with purulent exudate on the tip, which was dilated. No gross contamination. Sammie the base of the appendix at the termination of taeniae. INDICATION: The patient is a 33-year-old male presenting with right lower quadrant pain for 1 day, slight leukocytosis. CT confirmed the presence of acute appendicitis, after he was clinically diagnosed with right lower quadrant tenderness and low-grade fever. He was counseled regarding risks, benefits, and alternatives to surgical procedure proposed, signed informed consent, was taken for procedure. PROCEDURE: The patient was brought to the operating room. He was placed in supine position in the operating table. The lower extremities had SCDs placed to compression. The patient received intravenous antibiotics prior to the start of surgery in the form of Levaquin and Flagyl given, as there is PENICILLIN allergy. He was induced with general anesthesia. He was endotracheally intubated. Anterior abdominal wall was shaved, prepped and draped in standard surgical fashion, blocking the lower abdomen into a surgical field. With all parties in agreement, we began first with a formal timeout, identifying the operative site and procedure. We began first with an infraumbilical Robin approach to the abdomen. It was incised with a 15 blade scalpel, deepened and widened through subcutaneous tissue down to the mid fascia of the rectus muscles. When identified, the rectus muscles were divided and elevated into the field with Roger clamps, and a blunt entry was made into the abdomen with a Vanessa clamp. With the abdominal viscera cleared with a digit, pneumoperitoneum was established in the abdomen to 15 mmHg. After establishing a pneumoperitoneum, we inspected the entry site, which appeared atraumatic. Only a small amount of bloody inflow around the intestines. The patient was placed into a steep Trendelenburg to allow for dissection at the cecum. The patient was then slightly planed to the left and 2 additional port sites were installed in the abdomen, 5 mm, at the suprapubic position and the left lower quadrant. With these ports installed, operative dissection began at the cecum. At the termination of the taeniae coli, which was traced to the base of the appendix, the appendix was grasped in mid body and a plane was developed between the body of the appendix and the mesoappendix itself. After the plane was developed with surgical dissection and hemostasis was obtained with Bovie cautery in the area, a 10-mm Endo LEV stapler with a 60-mm load, color purple, was introduced in the abdomen and used to transect the base of the appendix. After complete, a LigaSure device was then taken for the remainder of the mesoappendix dissection, obtaining hemostasis throughout the dissection. The appendix was then retrieved with an EndoCatch bag from the umbilical port after re-sighting the camera to the left lower quadrant. With the appendix retrieved from the abdomen, the abdomen was inspected, appeared otherwise grossly normal. We relieved the pneumoperitoneum and removed the trocars under direct visualization, at which point the pneumoperitoneum was relieved. The operative port at the Robin entry was then ablated with a [id number] Vicryl stitch to close the port at the fascia. Once tied tight, it was inspected and then the port sites were irrigated with sterile irrigation fluid. The skin was closed at the two 5-mm ports using a single interrupted subcuticular stitch, 4-0 Vicryl, and the umbilical incision was then closed with a running fashion 4-0 subcuticular stitch. Skin was cleaned. Sterile dressings were placed, which consisted of Dermabond. The patient was returned to normal position. All counts were correct prior to the closure of the abdomen. He was stable throughout the procedure. MD DORIE Chaney/[id number]
[2018-11-03] MEDS: MORPHINE SULFATE 2 MG/ML VIAL IVPUSH PRN (21:29)
[2018-11-03 21:40] LABS: PH,URINE 5.5 (5.0-8.0); URINE APPEARANCE CLEAR; URINE BILIRUBIN NEGATIVE (NEGATIVE); URINE COLOR YELLOW; URINE GLUCOSE (UA) NEGATIVE (NEGATIVE); URINE KETONE NEGATIVE (NEGATIVE); URINE NITRITE NEGATIVE (NEGATIVE); URINE PROTEIN NEGATIVE (NEGATIVE)
[2018-11-03 21:41] LABS: URINE LEUK ESTERASE NEGATIVE (NEGATIVE)
[2018-11-03 23:58] LABS: URINE BACTERIA FEW /hpf (NEGATIVE); URINE RBC 0-3 /hpf (0-4); URINE WBC 0 /hpf (0-5)
[2018-11-04] MEDS: KETOROLAC TROMETHAMINE 30 MG/1 ML VIAL IVPUSH ONE (01:37)
[2018-11-04] MEDS: MORPHINE SULFATE 2 MG/ML VIAL IVPUSH PRN ×2 (04:08→10:22)
[2018-11-04] MEDS: METOPROLOL TARTRATE 5 MG/5 ML VIAL IVPUSH ONE (06:37)
--- NOTE | 2018-11-04 07:03 | PN ---
Physical Exam: SUBJECTIVE: Patient seen and examined OBJECTIVE: Vital Signs Period Temp Pulse Resp BP Sys/Felder Pulse Ox Last 24 Hr 97.7 F-98.4 F 100-125 14-20 106-159/53-84 93-100 GENERAL: The patient is awake, alert, and fully oriented, in no acute distress. HEAD: Normal with no signs of trauma. EYES: PERRL, extraocular movements intact, sclera anicteric, conjunctiva clear. No ptosis. ENT: Ears normal, nares patent, oropharynx clear without exudates, moist mucous membranes. NECK: Trachea midline, full range of motion, supple. LUNGS: Breath sounds equal, clear to auscultation bilaterally, no wheezes, no crackles, no accessory muscle use. HEART: Regular rate and rhythm, S1, S2 without murmur, rub or gallop. ABDOMEN: Soft, nontender, nondistended, normoactive bowel sounds, no guarding, no rebound, no hepatosplenomegaly, no masses. EXTREMITIES: 2+ pulses, warm, well-perfused, no edema. NEUROLOGICAL: Cranial nerves II through XII grossly intact. Normal speech, gait not observed. PSYCH: Normal mood, normal affect. SKIN: Warm, dry, normal turgor, no rashes or lesions noted Laboratory Results - last 24 hr 11/03/18 11/03/18 11/03/18 13:38 13:38 15:00 WBC 11.2 H RBC 5.09 Hgb 15.5 Hct 45.5 MCV 89.5 MCH 30.5 MCHC 34.1 RDW 13.6 Plt Count 264 MPV 8.5 Absolute Neuts (auto) 8.8 H Neutrophils % 78.5 D Lymphocytes % 11.6 D Monocytes % 8.1 Eosinophils % 1.5 Basophils % 0.3 Nucleated RBC % 0 PT with INR INR PTT (Actin FS) Cancelled Sodium 136 Potassium 4.4 Chloride 101 Carbon Dioxide 29 Anion Gap 7 L BUN 15.8 Creatinine 1.1 Est GFR (CKD-EPI)AfAm 100.97 Est GFR (CKD-EPI)NonAf 87.12 Random Glucose 92 Calcium 9.5 Total Bilirubin 1.1 H AST 16 ALT 32 Alkaline Phosphatase 101 Total Protein 7.9 Albumin 4.4 Urine Color Urine Appearance Urine pH Ur Specific [place] Urine Protein Urine Glucose (UA) Urine Ketones Urine Blood Urine Nitrite Urine Bilirubin Urine Urobilinogen Ur Leukocyte Esterase Urine WBC (Auto) Urine RBC (Auto) Urine Bacteria (Auto) Blood Type Antibody Screen 11/03/18 11/03/18 11/03/18 15:00 15:00 16:00 WBC RBC Hgb Hct MCV MCH MCHC RDW Plt Count MPV Absolute Neuts (auto) Neutrophils % Lymphocytes % Monocytes % Eosinophils % Basophils % Nucleated RBC % PT with INR 15.10 H INR 1.28 H PTT (Actin FS) 34.8 Sodium Potassium Chloride Carbon Dioxide Anion Gap BUN Creatinine Est GFR (CKD-EPI)AfAm Est GFR (CKD-EPI)NonAf Random Glucose Calcium Total Bilirubin AST ALT Alkaline Phosphatase Total Protein Albumin Urine Color Yellow Urine Appearance Clear Urine pH 5.5 Ur Specific [place] 1.068 H Urine Protein Negative Urine Glucose (UA) Negative Urine Ketones Negative Urine Blood Trace Urine Nitrite Negative Urine Bilirubin Negative Urine Urobilinogen 1.0 Ur Leukocyte Esterase Negative Urine WBC (Auto) 0 Urine RBC (Auto) 0-3 Urine Bacteria (Auto) Few Blood Type A POSITIVE Antibody Screen Negative Active Medications Generic Name Dose Route Start Last Admin Trade Name Freq PRN Reason Stop Dose Admin Lactated Ringer's 1,000 ml in 1,000 mls @ 100 mls/hr 11/03/18 19:18 11/03/18 21:23 Lactated Ringers Solution IV Not Given ASDIR FRANCISCO Morphine Sulfate 2 mg 11/03/18 19:18 11/04/18 04:08 Morphine Sulfate IVPUSH 2 mg Q6H PRN Administration PAIN LEVEL 4 - 6 Ondansetron HCl 4 mg 11/03/18 19:18 Zofran Injection IM Q6H PRN NAUSEA ASSESSMENT/PLAN: 33 yo with PMH of anxiety/depression presents to the ED with complaints of abdominal pain (maily RLQ pain that radiated to the groin) that started 2 days ago- patient states that the pain started after he had foreign cuisine food ( south [place]) and he attributed the pain to that and thought that is was gas pain so he took some gas-x and tylenol. the pain got worse and he developed some nausea and diarrhea yesterday. however he denies any fevres or chills. today he states that pain was around a 10/10 and he couldn't toelrate it so he came to the ED. he has never had pain like this before; he denies any recent travel or sick contacts. ER course was notable for: (1) vitals wnl: WBC 11.2 (2) ab/plevis CT shows acute appendicitis (3) given levaquin/flagyl; dilaudid; (4) PT with INR 15.10 Surgical HX: hiatal hernia repair and cholecystectomy 5 years ago Penicillins Allergy 33 y..o with PMH of anxiety/depression presents to the ED with complaints of abdominal pain (maily RLQ pain that radiated to the groin) that started 2 days ago found to have acute appendicitis #Acute Appendicitis -patient found to have acute appendicitis on CT scan -Post appendectomy -R/L @100mls/hr -morphine 2mg q6H PRN for pain control -Zofran 4mg PRN FOR nausea #Depression/Anxiety patient states he is currently not on medication F/E/N LR @100mls/hr monitor electrolytes NPO for now DVT PE SCDS ATTENDING PHYSICIAN STATEMENT I saw and evaluated the patient. I reviewed the resident's note and discussed the case with the resident. I agree with the resident's findings and plan as documented. SUBJECTIVE: OBJECTIVE: ASSESSMENT AND PLAN:
--- NOTE | 2018-11-04 08:10 | PN ---
Teaching Attending Note Name of Resident: Dawit Stanton ATTENDING PHYSICIAN STATEMENT I saw and evaluated the patient. I reviewed the resident's note and discussed the case with the resident. I agree with the resident's findings and plan as documented. SUBJECTIVE:C/O mild abd pain and Hicoughs able to pass flatus OBJECTIVE: Vital Signs Temperature 97.7 F 11/04/18 06:34 Pulse Rate 104 H 11/04/18 06:34 Respiratory Rate 20 11/04/18 06:34 Blood Pressure 107/76 11/04/18 06:34 O2 Sat by Pulse Oximetry (%) 98 11/04/18 01:41 Young man not in distress walking comfortably HEENT: mm moist, no anemia, PERRLA EOMI NECK: No JVd No Bruit CHEST: CTA B/L CVS: s1S2 r no m/g/r ABD: S/P surgery mild distention BS + EXT: no edema feet, no calf tenderness [employer]OR[employer]: AOX3 non focal CBC, BMP 11/04/18 06:58 11/04/18 06:58 Active Medications Lactated Ringer's (Lactated Ringers Solution) 1,000 ml in 1,000 mls @ 100 mls/ hr IV ASDIR FRANCISCO Last Admin: 11/03/18 21:23 Dose: Not Given Morphine Sulfate (Morphine Sulfate) 2 mg IVPUSH Q6H PRN PRN Reason: PAIN LEVEL 4 - 6 Last Admin: 11/04/18 10:22 Dose: 2 mg Ondansetron HCl (Zofran Injection) 4 mg IM Q6H PRN PRN Reason: NAUSEA ASSESSMENT AND PLAN:33 yrs old male H/O depression s/p Cholycystectomy and Hiatal hernia repiar present with 2 days h/o Rt LQ pain ,elevated TWBC CT abd shows acute appendicitis s/p laproscopic claered by surgery to Dc home Problem List - Problems (1) Appendicitis Assessment/Plan: s/P Laproscopic appendectomy uncomplicated discussed with Surgery consult claered to Dc Home patient c/o Hicoughs start PO Metclopramid PRN and PPA can be Dc home once able to tolerate PO as per operating team, no indication of abx. Code(s): K37 - UNSPECIFIED APPENDICITIS Qualifiers: Appendicitis type: acute appendicitis Acute appendicitis type: unspecified acute appendicitis type Qualified Code(s): K35.80 - Unspecified acute appendicitis
[2018-11-04 08:14] LABS: BASO % 0.1 % (0-2.0); HEMATOCRIT 40.7 % (35.4-49); HEMOGLOBIN 13.5 GM/dL (11.7-16.9); LYMPH % 5.2 % (8-40); MCH 30.3 pg (25.7-33.7); MCHC 33.3 g/dl (32.0-35.9); MEAN PLT VOLUME 8.9 fl (7.5-11.1); MONO % 4.8 % (3.8-10.2); NEUT % 89.9 % (42.8-82.8); PLATELET COUNT 245 K/MM3 (134-434); RBC 4.47 M/mm3 (4.00-5.60); RDW 13.9 % (11.9-15.9); WHITE BLOOD COUNT 11.1 K/mm3 (4.0-10.0)
[2018-11-04 08:46] LABS: ALBUMIN 3.6 g/dl (3.4-5.0); BILIRUBIN,TOTAL 0.9 mg/dL (0.2-1); BLOOD UREA NITROGEN 12.6 mg/dL (7-18); CALCIUM 8.9 mg/dL (8.5-10.1); MAGNESIUM 1.9 mg/dL (1.8-2.4); POTASSIUM 4.8 mmol/L (3.5-5.1); TOT PROT 7.1 g/dl (6.4-8.2)
--- NOTE | 2018-11-04 11:42 | PN ---
Progress Note (short form) - Note Progress Note: Anesthesia postop note 33 y/o M s/p GA for Appendectomy POD#1, vss, aaox3, some abdominal discomfort, ambulated earlier today. No anestesia complications.
[2018-11-04 13:23] VITALS: TEMP 98.2
[2018-11-04] MEDS ORDERED: PANTOPRAZOLE 40 MG TABLET (FP) PO SCH (14:45)
[2018-11-04 15:25] VITALS: BP 143/79; PULSE 108
--- NOTE | 2018-11-07 16:27 | DS ---
Physical Exam: SUBJECTIVE: Patient seen and examined, AOx3 OBJECTIVE: PHYSICAL EXAM GENERAL: The patient is awake, alert, and fully oriented, in no acute distress. HEAD: Normal with no signs of trauma. EYES: PERRL, extraocular movements intact, sclera anicteric, conjunctiva clear. ENT: Ears normal, nares patent, oropharynx clear without exudates, moist mucous membranes. NECK: Trachea midline, full range of motion, supple. LUNGS: Breath sounds equal, clear to auscultation bilaterally, no wheezes, no crackles, no accessory muscle use. HEART: Regular rate and rhythm, S1, S2 without murmur, rub or gallop. ABDOMEN: Soft, tender diffusely, nondistended, hypoactive bowel sounds, no guarding, no rebound, no hepatosplenomegaly, no masses. EXTREMITIES: 2+ pulses, warm, well-perfused, no edema. NEUROLOGICAL: Cranial nerves II through XII grossly intact. Normal speech, gait not observed. PSYCH: Normal mood, normal affect. SKIN: Warm, dry, normal turgor, no rashes or lesions noted. LABS HOSPITAL COURSE: Date of Admission:11/03/18 33 yo with PMH of anxiety/depression presented to the ER with complaints of 2 days of RLQ abdominal pain radiating to the groin, 10/10 in intensity which started after he had dinner. Associated with nausea and diarrhea, no fevers or chills. ER course was notable for: (1) WBC 11.2 (2) CT abdomen/pelvis shows acute appendicitis (3) Levaquin/flagyl; dilaudid; (4) PT with INR 15.10 Date of Discharge: 11/07/18 #Acute Appendicitis - Appendectomy performed, no complications - R/L @100mls/hr - morphine 2mg q6H PRN for pain control - Zofran 4mg PRN FOR nausea #Depression/Anxiety - Stopped taking medications Minutes to complete discharge: 37 Discharge Summary Reason For Visit: APPENDICITIS Condition: Improved - Instructions Diet, Activity, Other Instructions: Postoperative instructions: You had a laparoscopic appendectomy on 11/03/[address] Smooth Tinajero of [facility]. Activity: Resume your usual activities gradually, but no heavy exertion or lifting more than 10-15 pounds for 1 month. Remove dressings 48 hours after surgery; sticky tapes underneath will fall off by themselves. You may shower daily starting then, just pat the incision areas dry. No bath or swimming until skin incisions have healed. Eat lightly at first, but advance to your usual diet as tolerated. Pain: For pain, you may use and alternate Tylenol (acetaminophen) 1-2 pills and/ or ibuprofen 200 mg (1-3 pills) every 6 hours each as needed; this means that you can take one OR the other at 3-hour intervals. If you are prescribed a Tylenol/narcotic combination for severe pain, use it instead of plain Tylenol as needed and switch back when your pain starts decreasing. Do not take more than 4000mg of acetaminophen in a day. Take medications as prescribed or indicated on the labeling. Follow-up: Call Dr. Tinajero' office at [phone] to make your postop appointment (Wednesday in approximately 2 weeks after surgery). Clinic is held in the [facility] on the first floor of [facility], [place]. Call the office if you have: * increasing pain not responsive to pain medication * fever of 101F or higher * vomiting * unusual or increasing bleeding or drainage from wounds * increasing redness or swelling at wound sites * inability to urinate Also, see your primary medical doctor within 1-2 weeks. Referrals: Smooth Tinajero MD [Staff Physician] - Disposition: HOME - Home Medications Comprehensive Discharge Medication List: Ambulatory Orders NK [No Known Home Medication] 11/04/18 This patient is new to me today: Yes Date on this admission: 11/07/18 Emergency Visit: Yes ED Registration Date: 11/03/18 Care time: The patient presented to the Emergency Department on the above date and was hospitalized for further evaluation of their emergent condition. Critical Care patient: No - Discharge Referral Referred to [facility] Med P.C.: No ATTENDING PHYSICIAN STATEMENT I saw and evaluated the patient. I reviewed the resident's note and discussed the case with the resident. I agree with the resident's findings and plan as documented. SUBJECTIVE: OBJECTIVE: ASSESSMENT AND PLAN:
--- NOTE | 2018-11-07 17:13 | PATH ---
Surgical Pathology Report Patient Name: EMILY JIMENEZ Med. Rec. #: [id number] /Age/Gender: 1985 (Age: 33) / M Account: [id number] Location: [facility] MED/SURG Taken: 11/03/2018 Received: 11/04/2018 Reported: 11/07/2018 Physicians: Smooth Tinajero M.D. Specimen(s) Received APPENDIX Clinical History Acute Appendicitis Final Diagnosis APPENDIX, APPENDECTOMY: ACUTE APPENDICITIS AND PERIAPPENDICITIS. Electronically Signed Vicki Villanueva M.D. Gross Description Received in formalin, labeled "appendix," is a 8 x 1 x 1 cm. in length vermiform appendix with a stapled margin of resection and moderate attached fat. The serosa shows focal yellow exudate. Sectioning reveals an unremarkable 0.2 cm lumen. The wall of the appendix averages 0.2 cm. in thickness. Agents' Records Clerk sections are submitted in one cassettes. MLSZ/11/04/2018 sanbro/11/04/2018
== END 2018-11-04 16:54 | disposition home or self-care (01) | DRG 225 ==
LOC: JER 11:54 → JERBED 16:32 → J8W 20:53
PROVIDERS: ADMIT Internal Medicine; ATTEND Internal Medicine
PROC: 0DTJ4ZZ Resection of Appendix, Percutaneous Endoscopic Approach (ICD-10-PCS; principal; 2018-11-03 17:30)
DX: K35.30 Acute appendicitis with localized peritonitis, without perforation or gangrene (principal); F41.9 Anxiety disorder, unspecified; F32.9 Major depressive disorder, single episode, unspecified
CPT/HCPCS: 36415; 74177-TC; 80053; 81003; 83735; 85025; 85610; 85730; 86850; 86900; 86901; 87086; 88304-TC; 94760; 99283-25; J0131; J7030

== ENCOUNTER 2018-11-23 05:29 | Inpatient (IN) | payer OTHER ==
--- NOTE | 2018-11-23 05:40 | PDOC ---
History of Present Illness - General Chief Complaint: Rectal Bleed Stated Complaint: BLOOD IN STOOL, S/P SURGERY Time Seen by Provider: 11/23/18 05:39 History Source: Patient - History of Present Illness Initial Comments: 11/23/18 05:47 33 year old male c/o episodes of dark stool starting yesterday, today bloody stool. patient reports lower abdominal pain fpr the last 2 days. Patient is s/p appendectomy on 11/04/2018 with no complications. patient reports that 2 days after dC patient had some constipation which has resolved. Patient reports that he has been having hard stool.reports for the past 2 days dark stool was noted. Today with 2-3 episodes of bright red stool. denies blood thinners, aspirin/ NSAID use. past medical history of hernia repair, appendectomy, cholecystectomy Surgeon : Dr. Hale 11/23/18 06:25 Past History - Past Medical History Allergies/Adverse Reactions: Allergies Allergy/AdvReac Type Severity Reaction Status Date / Time Penicillins Allergy Verified 11/23/18 05:56 metoclopramide HCl AdvReac Verified 11/23/18 05:56 [facility] Home Medications: Ambulatory Orders Buspirone HCl [Buspar -] 15 mg PO TID 11/23/18 Paroxetine HCl [Paxil] 40 mg PO DAILY 11/23/18 COPD: No Psychiatric Problems: Yes (depression, anxiety) - Surgical History Abdominal Surgery: Yes (HIATEL HERNIA) Cholecystectomy: Yes - Suicide/Smoking/Psychosocial Hx Smoking History: Never smoked Have you smoked in the past 12 months: No Hx Alcohol Use: No Drug/Substance Use Hx: No Review of Systems - Review of Systems Able to Perform ROS?: Yes Is the patient limited Maltese proficient: No Constitutional: Yes: Chills. No: Symptoms Reported, See HPI, Diaphoresis, Fever , Loss of Appetite, Malaise, Night Sweats, Weakness, Weight Stable, Unintentional Wgt. Loss, Unexplained wgt Loss, Other ABD/GI: Yes: Blood Streaked Bowels, Constipated, Abdominal cramping. No: Symptoms Reported, See HPI, Abdominal Distended, Abd. Pain w/ defecation, Diarrhea, Difficulty Swallowing, Nausea, Poor Appetite, Poor Fluid Intake, Rectal Bleeding, Vomiting, Indigestion, Tarry Stools, Other *Physical Exam - Vital Signs 11/23/18 06:15 Last Vital Signs Temp Pulse Resp BP Pulse Ox 98.1 F 103 H 18 145/100 100 11/23/18 05:49 11/23/18 05:49 11/23/18 05:49 11/23/18 05:49 11/23/18 05:49 - Physical Exam General Appearance: Yes: Appropriately Dressed Respiratory/Chest: positive: Lungs Clear, Normal Breath Sounds Cardiovascular: positive: Regular Rhythm, Regular Rate Gastrointestinal/Abdominal: positive: Normal Bowel Sounds, Tender (Lower abdominal area> upper abdominal area) Male Genitalia: positive: normal genitalia Rectal Exam: positive: normal rectal tone, heme positive stool. negative: hemorrhoids Extremity: positive: Normal Capillary Refill, Normal Inspection Integumentary: positive: Normal Color, Dry, Warm Neurologic: positive: Fully Oriented, Alert, Normal Mood/Affect ED Treatment Course - LABORATORY CBC & Chemistry Diagram: 11/23/18 06:21 11/23/18 06:21 Progress Note - Progress Note Progress Note: A: abdominal pain; Rectal bleed P: labs stool occult CTAP Medical Decision Making - Medical Decision Making 11/23/18 06:45 patient is pending labs , CTAP. patient signed out to Claritza SINCLAIR. *DC/Admit/Observation/Transfer Diagnosis at time of Disposition: Abdominal pain Qualifiers: Abdominal location: left lower quadrant Qualified Code(s): R10.32 - Left lower quadrant pain GI bleed Qualifiers: GI bleed type/associated pathology: unspecified gastrointestinal hemorrhage type Qualified Code(s): K92.2 - Gastrointestinal hemorrhage, unspecified - Referrals Referrals: Terra Lawrence MD [Primary Care Provider] - - Patient Instructions - Post Discharge Activity
[2018-11-23] MEDS ORDERED: SODIUM CHLORIDE 1,000 ML IV STA (05:45)
[2018-11-23 05:55] VITALS: BMI 24.6
[2018-11-23 06:35] LABS: HEMATOCRIT 42.4 % (35.4-49); HEMOGLOBIN 14.4 GM/dL (11.7-16.9); LYMPH % 42.7 % (8-40); MCH 30.4 pg (25.7-33.7); MEAN CELL VOLUME 89.6 fl (80-96); MEAN PLT VOLUME 8.6 fl (7.5-11.1); MONO % 8.5 % (3.8-10.2); NEUT % 45.8 % (42.8-82.8); PLATELET COUNT 287 K/MM3 (134-434); RBC 4.73 M/mm3 (4.00-5.60); RDW 13.5 % (11.9-15.9); WHITE BLOOD COUNT 5.9 K/mm3 (4.0-10.0)
--- NOTE | 2018-11-23 06:42 | PDOC ---
*Physical Exam - Vital Signs Last Vital Signs Temp Pulse Resp BP Pulse Ox 98.1 F 103 H 18 145/100 100 11/23/18 05:49 11/23/18 05:49 11/23/18 05:49 11/23/18 05:49 11/23/18 05:49 - Physical Exam Comments: 11/23/18 06:37 sitting in stretcher nad slight tachycardia to low 100's, s1 s2 no mrg soft abd, TTP in lower quadrants bilaterally, no rebound or guarding lap appy scars visible around umbilicus and suprapubic area w/ no purulent drainage or surrounding erythema no hernias or masses noted normal non tender testicles per PA rectal shows bright red blood on gloved finger ED Treatment Course - LABORATORY CBC & Chemistry Diagram: 11/23/18 06:21 11/23/18 06:21 - ADDITIONAL ORDERS Additional order review: Laboratory Results 11/23/18 05:46 Stool Occult Blood Positive Medical Decision Making - Medical Decision Making 11/23/18 06:40 3 weeks postop appy, hx dallas's esophagus with BRBPR tender in lower abdomen tachycardic to low 100's given tender abd 3 weeks postop from lap appy should consider abscess / surgical site infx BRBPR suggestive of LGIB vs brisk UGIB labs T&S CTAP w/ oral and IV dispo per labs / CTAP - if workup non concerning and HR improved s/p observation can consider GI and surgery f/u *DC/Admit/Observation/Transfer Diagnosis at time of Disposition: Abdominal pain Qualifiers: Abdominal location: left lower quadrant Qualified Code(s): R10.32 - Left lower quadrant pain GI bleed Qualifiers: GI bleed type/associated pathology: unspecified gastrointestinal hemorrhage type Qualified Code(s): K92.2 - Gastrointestinal hemorrhage, unspecified - Referrals Referrals: Terra Lawrence MD [Primary Care Provider] - - Patient Instructions - Post Discharge Activity
[2018-11-23 06:52] LABS: INR 1.03 (0.83-1.09); PROTHROMBIN TIME (PATIENT) 12.1 SEC (9.7-13.0)
--- NOTE | 2018-11-23 07:02 | PDOC ---
*Physical Exam - Vital Signs Last Vital Signs Temp Pulse Resp BP Pulse Ox 98.1 F 103 H 18 145/100 100 11/23/18 05:49 11/23/18 05:49 11/23/18 05:49 11/23/18 05:49 11/23/18 05:49 <Claritza Barbosa - Last Filed: 11/23/18 10:54> - Vital Signs Last Vital Signs Temp Pulse Resp BP Pulse Ox 98.0 F 79 20 140/84 96 11/23/18 18:00 11/23/18 18:00 11/23/18 18:00 11/23/18 18:00 11/23/18 14:44 <Angel Dietz - Last Filed: 11/23/18 20:14> ED Treatment Course - LABORATORY CBC & Chemistry Diagram: 11/23/18 09:20 11/23/18 06:21 - ADDITIONAL ORDERS Additional order review: Laboratory Results 11/23/18 11/23/18 11/23/18 06:21 06:21 06:21 PT with INR 12.10 INR 1.03 PTT (Actin FS) 34.9 Lipase 126 Stool Occult Blood 11/23/18 05:46 PT with INR INR PTT (Actin FS) Lipase Stool Occult Blood Positive - Medications Given in the ED: ED Medications Discontinued Medications Generic Name Dose Route Start Last Admin Trade Name Alejandra PRN Reason Stop Dose Admin Sodium Chloride 1,000 mls @ 1,000 mls/hr 11/23/18 05:45 11/23/18 06:26 Normal Saline - IV 11/23/18 06:44 1,000 mls/hr ASDIR STA Administration <Claritza Barbosa - Last Filed: 11/23/18 10:54> - LABORATORY CBC & Chemistry Diagram: 11/23/18 16:00 11/23/18 06:21 - ADDITIONAL ORDERS Additional order review: Laboratory Results 11/23/18 11/23/18 07:30 06:40 Urine Color Yellow Urine Appearance Clear Urine pH 6.0 Ur Specific [place] 1.014 Urine Protein Negative Urine Glucose (UA) Negative Urine Ketones Negative Urine Blood Negative Urine Nitrite Negative Urine Bilirubin Negative Urine Urobilinogen 0.2 Ur Leukocyte Esterase Negative Blood Type A POSITIVE Antibody Screen Negative 11/23/18 11/23/18 09:20 06:21 RBC 4.51 4.73 MCV 89.3 89.6 MCHC 33.8 34.0 RDW 13.5 13.5 MPV 8.1 8.6 Neutrophils % 45.7 45.8 D Lymphocytes % 44.1 H 42.7 H D Monocytes % 7.8 8.5 Eosinophils % 1.7 2.0 D Basophils % 0.7 1.0 D - Medications Given in the ED: ED Medications Discontinued Medications Generic Name Dose Route Start Last Admin Trade Name Alejandra PRN Reason Stop Dose Admin Sodium Chloride 1,000 mls @ 1,000 mls/hr 11/23/18 05:45 11/23/18 06:26 Normal Saline - IV 11/23/18 06:44 1,000 mls/hr ASDIR STA Administration Pantoprazole Sodium 40 mg 11/23/18 10:12 11/23/18 11:15 Protonix Iv IVPB 11/23/18 10:13 40 mg ONCE ONE Administration <Angel Dietz - Last Filed: 11/23/18 20:14> Medical Decision Making - Medical Decision Making 11/23/18 07:00 Sign out received from JAMES Loaiza. Pt with PMH of [place]'s esophagus of appendectomy 3 weeks ago, presents with BRBPR/rectal bleeding and lower abdominal pain. Stool for occult blood positive. Pt pending labs and CT. Anticipate admission. GI: [facility] Doctors PCP: Dr. Lawrence ([facility]) 11/23/18 09:59 CT with no acute pathology; questionable meseneric lymph nodes Repeat CBC 14.4 -->13.6 GI consult Admit to hospitalists 11/23/18 10:[address] Jaramillo who accepts the patient for admission Still pending GI call back 11/23/18 10:55 Spoke with GI. Requesting Surgery consult. Consulted Dr. Tinajero (routine). Dr. Phoenix aware. <Claritza Barbosa - Last Filed: 11/23/18 10:54> *DC/Admit/Observation/Transfer - Discharge Dispostion Decision to Admit order: Yes <Claritza Barbosa - Last Filed: 11/23/18 10:54> - Attestations Physician Attestion: 11/23/18 20:14 I have reviewed the plan as documented and agree with current plan as documented. Electronically co-signed by Angel Dietz MD <Angel Dietz - Last Filed: 11/23/18 20:14> Diagnosis at time of Disposition: Abdominal pain Qualifiers: Abdominal location: left lower quadrant Qualified Code(s): R10.32 - Left lower quadrant pain GI bleed Qualifiers: GI bleed type/associated pathology: unspecified gastrointestinal hemorrhage type Qualified Code(s): K92.2 - Gastrointestinal hemorrhage, unspecified - Discharge Dispostion Condition at time of disposition: Stable
[2018-11-23 07:04] LABS: ALBUMIN 4.1 g/dl (3.4-5.0); BILIRUBIN,TOTAL 0.2 mg/dL (0.2-1); BLOOD UREA NITROGEN 15.8 mg/dL (7-18); CALCIUM 9.2 mg/dL (8.5-10.1); CREATININE 1.2 mg/dL (0.55-1.3); POTASSIUM 4.1 mmol/L (3.5-5.1); TOT PROT 7.3 g/dl (6.4-8.2)
[2018-11-23 08:45] LABS: URINE APPEARANCE CLEAR; URINE BILIRUBIN NEGATIVE (NEGATIVE); URINE COLOR YELLOW; URINE GLUCOSE (UA) NEGATIVE (NEGATIVE); URINE KETONE NEGATIVE (NEGATIVE); URINE LEUK ESTERASE NEGATIVE (NEGATIVE); URINE NITRITE NEGATIVE (NEGATIVE); URINE PROTEIN NEGATIVE (NEGATIVE); URINE UROBILINOGEN 0.2 mg/dL (0.2-1.0)
[2018-11-23 09:30] LABS: BASO % 0.7 % (0-2.0); EOS % 1.7 % (0-4.5); HEMATOCRIT 40.3 % (35.4-49); HEMOGLOBIN 13.6 GM/dL (11.7-16.9); LYMPH % 44.1 % (8-40); MCH 30.2 pg (25.7-33.7); MCHC 33.8 g/dl (32.0-35.9); MEAN CELL VOLUME 89.3 fl (80-96); MEAN PLT VOLUME 8.1 fl (7.5-11.1); MONO % 7.8 % (3.8-10.2); NEUT % 45.7 % (42.8-82.8); PLATELET COUNT 281 K/MM3 (134-434); RBC 4.51 M/mm3 (4.00-5.60); RDW 13.5 % (11.9-15.9)
[2018-11-23] MEDS ORDERED: PANTOPRAZOLE SODIUM 40 MG VIAL IVPB ONE (10:12)
--- NOTE | 2018-11-23 11:02 | CON.GI ---
Consult Consult Specialty:: Gastrenterology Reason for Consultation:: Rectal bleeding - History of Present Illness Chief Complaint: Rectal bleeding History of Present Illness: 33yo male h/o hiatal hernia repair, cholecystectomy, recent laparoscopic appendectomy on 11/03/18 presenting with lower abdominal pain and rectal bleeding. Pt reports persisting lower abdominal pain since the appendectomy on 11/03/18, varying intensity, mostly pressure sensation. Otherwise was moving bowels regularly without straining. He noted episode of dark stools yesterday though mostly formed, with subsequent episode of dark and bright bloody stools overnight prompting hospitalization. Was supposed to have interval follow up with Dr. Tinajero however had not. Continues to report lower abdominal pain. No further bleeding in ED. Denies heartburn, n/v, fever/chills. Denies NSAID use. CT abd/pelvis revealing post appendectomy changes and diverticulosis otherwise no acute findings. Of note, pt was following with [facility] (Dr. Claire) for reflux symptoms and possible barretts s/p prior endoscopies most recently performed 3-4 months ago at [facility] with Dr. Wolf per pt. Plans to resume follow up with Dr. Claire (report not available). - History Source History Provided By: Patient Limitations to Obtaining History: No Limitations - Alcohol/Substance Use Hx Alcohol Use: No - Smoking History Smoking history: Never smoked Have you smoked in the past 12 months: No Home Medications - Allergies Allergies/Adverse Reactions: Allergies Allergy/AdvReac Type Severity Reaction Status Date / Time Penicillins Allergy Verified 11/23/18 05:56 metoclopramide HCl AdvReac Verified 11/23/18 05:56 [From [facility]] - Home Medications Home Medications: Ambulatory Orders Buspirone HCl [Buspar -] 15 mg PO TID 11/23/18 Paroxetine HCl [Paxil] 40 mg PO DAILY 11/23/18 Review of Systems - Review of Systems Constitutional: reports: No Symptoms Neck: reports: No Symptoms Cardiovascular: reports: No Symptoms Respiratory: reports: No Symptoms Gastrointestinal: reports: Abdominal Pain, Rectal Bleeding Physical Exam-GI Vital Signs: Vital Signs Temperature 98.1 F 11/23/18 05:49 Pulse Rate 103 H 11/23/18 05:49 Respiratory Rate 18 11/23/18 05:49 Blood Pressure 145/100 11/23/18 05:49 O2 Sat by Pulse Oximetry (%) 100 11/23/18 05:49 Constitutional: Yes: Well Nourished, Calm, Other (Appears well, comfortable) Cardiovascular: Yes: WNL, Regular Rate and Rhythm Respiratory: Yes: WNL, Regular, CTA Bilaterally ...Palpate: Yes: Other (Abd soft, mildly tender on palpation in lower abdomen, + healing laparascopic incisional scars. No rebound, guarding or rigidity Pt refused rectal exam (ED findings noted).) Labs: CBC, BMP 11/23/18 09:20 11/23/18 06:21 INR, PTT INR 1.03 (0.83-1.09) 11/23/18 06:21 Imaging - Results Cat Scan: Report Reviewed, Image Reviewed Problem List - Problems (1) Rectal bleeding Assessment/Plan: 33yo male h/o hiatal hernia repair, cholecystectomy, recent laparascopic appendectomy on 11/03/18 presenting with lower abdominal pain and rectal bleeding. CT abd/pelvis revealing post appendectomy changes and diverticulosis, otherwise no acute findings. Exact etiology unclear, suspected outlet bleeding/ hemorrhoidal however post appendectomy with persisting pain and possible darker stools and cannot exclude more proximal bleeding from surgical site vs ulcerations. Less likely diverticular. Low suspicion for UGI bleed though cannot exclude, no accelerated azotemia. Hb stable. -Continue to monitor Hb and for evidence of bleeding -PPI daily -Avoid NSAIDs -Recommend surgical evaluation in view of recent appendectomy -Pending surgery recommendations regarding optimal timing post op, would consider colonoscopy +/- EGD for further evaluation -If overt bleeding with acute drop in Hb or hemodynamic instability recommend CTA to better localize source, and IR consult. Discussed with ED staff. Code(s): K62.5 - HEMORRHAGE OF ANUS AND RECTUM
[2018-11-23] MEDS ORDERED: PANTOPRAZOLE SODIUM 40 MG VIAL ONE (11:13)
--- NOTE | 2018-11-23 15:41 | CONSULT ---
Consult Consult Specialty:: General Surgery Reason for Consultation:: GI bleed - History of Present Illness Chief Complaint: GI bleed History of Present Illness: 33 yo male PMH anxiety, depression, hemorrhoids, s/p hiatal hernia repair 2014 at [facility], s/p cholecysteoctomy for acute cholecytitis, s/p Laparoscopic appendectomy for acute appendicitis 11/03/2018 complains of episodes of dark stool starting yesterday, today bloody stool. patient reports lower abdominal pain fpr the last 2 days. patient reports that 2 days after dC patient had some constipation which has resolved. Patient reports that he has been having hard stool.reports for the past 2 days dark stool was noted. Today with 2-3 episodes of bright red stool. denies blood thinners, aspirin/ NSAID use. he has been hemodynamically stable. pathology reviewed from recent surgery, its consistent with the diagnosis. we were given a routine consult - History Source History Provided By: Patient, Medical Record Limitations to Obtaining History: No Limitations - Past Medical History Gastrointestinal: Yes: Diverticulosis, Hemorrhoids, Hiatal Hernia Psych: Yes: Anxiety, Depression - Past Surgical History Past Surgical History: Yes: Appendectomy, Cholecystectomy, Hernia Repair ( Hiatal hernia repair ) - Alcohol/Substance Use Hx Alcohol Use: No - Smoking History Smoking history: Never smoked Have you smoked in the past 12 months: No Home Medications - Allergies Allergies/Adverse Reactions: Allergies Allergy/AdvReac Type Severity Reaction Status Date / Time Penicillins Allergy Verified 11/23/18 05:56 metoclopramide HCl AdvReac Verified 11/23/18 05:56 [From Reglan] - Home Medications Home Medications: Ambulatory Orders Buspirone HCl [Buspar -] 15 mg PO TID 11/23/18 Paroxetine HCl [Paxil] 40 mg PO DAILY 11/23/18 Review of Systems - Review of Systems Constitutional: denies: Chills, Fever Eyes: denies: Blind Spots, Recent Change in Vision HENT: denies: Difficult Swallowing, Throat Pain Neck: denies: Lumps, Pain on Movement, Tenderness Cardiovascular: denies: Chest Pain, Palpitations Respiratory: denies: Cough, SOB Gastrointestinal: reports: Abdominal Pain, Constipation, Rectal Bleeding. denies: Diarrhea, Dysphagia Genitourinary: denies: Burning, Discharge, Dysuria Breasts: reports: No Symptoms Reported. denies: Pain Musculoskeletal: denies: Muscle Pain, Muscle Cramps Integumentary: denies: Lesions, Rash Neurological: denies: Seizure, Syncope Endocrine: denies: Unexplained Weight Gain, Unexplained Weight Loss Hematology/Lymphatic: denies: Easily Bruised, Excessive Bleeding Psychiatric: reports: Anxiety, Depression Physical Exam Vital Signs: Vital Signs Temperature 97.6 F 11/23/18 14:44 Pulse Rate 79 11/23/18 14:44 Respiratory Rate 18 11/23/18 14:44 Blood Pressure 147/93 11/23/18 14:44 O2 Sat by Pulse Oximetry (%) 96 11/23/18 14:44 Vital Signs Period Temp Pulse Resp BP Sys/Felder Pulse Ox Last 24 Hr 97.6 F-98.1 F 79-103 18-20 140-147/84-100 96-100 Constitutional: Yes: Well Nourished, No Distress, Calm Eyes: Yes: Conjunctiva Clear, EOM Intact HENT: Yes: Atraumatic, Normocephalic Neck: Yes: Supple, Trachea Midline Cardiovascular: Yes: Regular Rate and Rhythm, S1, S2 Respiratory: Yes: Regular, CTA Bilaterally Gastrointestinal: Yes: Normal Bowel Sounds, Soft, Tenderness (bilateral lower quadrants), Other (incisions are healing well). No: Hernia, Tenderness, Epigastrium, Tenderness, Rebound ...Rectal Exam: Yes: Hemorrhoids/External (small non bleeding hemroids), Sphincter Tone Normal. No: Hemorrhoids/Internal, Inflammation, Mass Integumentary: Yes: Incision Wound/Incision: Yes: Clean/Dry, Well Approximated, Open to air. No: Draining, Reddened, Bleeding, Excoriated Neurological: Yes: Alert, Oriented Psychiatric: Yes: Alert, Oriented Labs: CBC, BMP 11/23/18 09:20 11/23/18 06:21 Imaging - Results Cat Scan: Report Reviewed, Image Reviewed Problem List - Problems (1) GI bleed Assessment/Plan: 33yo male s/p Lap Appendectomy on 11/03/2018 no presenting with non-localized GIB , no associated drop in H&H, hemodynamically stable, CT scan shows some divertulosis which is likely the source of his bleeding. No indication for acute intervention from General Surgery defer to GI for non-operative medical management NPO and IVF hydration until treatment plan is determined, then advance diet as he tolerates it stop all NSAIDS consider monitored setting of bleeding is persistent trend CBC transfuse as indicated NGT lavage the stomach GI consultation to help localize the source (EGD now? colonoscopy 4-6 weeks s/p Appendectomy) serial abdominal examinations will follow peripherally Thank you for the opportunity to participate in the care of this patient. Code(s): K92.2 - GASTROINTESTINAL HEMORRHAGE, UNSPECIFIED Qualifiers: GI bleed type/associated pathology: unspecified gastrointestinal hemorrhage type Qualified Code(s): K92.2 - Gastrointestinal hemorrhage, unspecified (2) Anxiety Code(s): F41.9 - ANXIETY DISORDER, UNSPECIFIED (3) Depression Code(s): F32.9 - MAJOR DEPRESSIVE DISORDER, SINGLE EPISODE, UNSPECIFIED (4) Abdominal pain Code(s): R10.9 - UNSPECIFIED ABDOMINAL PAIN Qualifiers: Abdominal location: left lower quadrant Qualified Code(s): R10.32 - Left lower quadrant pain
--- NOTE | 2018-11-23 15:42 | HP ---
CHIEF COMPLAINT: BRBPR PCP: [facility] HISTORY OF PRESENT ILLNESS: 33 y/o M with PMHx of Anxiety, Depression and recent appendectomy (Dr. Tinajero, [place] on 11/04) presents with abdominal pain + BRBPR. Patient says his abdominal pain started since d/c from prior admission. He describes the pain as 8/10, cramping constant pain over his umbilical and suprapubic area without radiation. On 11/07, patient visited his PCP for follow up; his pain was so severe during this appointment that EMS was alerted and escorted him to [facility] ED where he eventually left AMA (feels he was not receiving tx). Since then, his pain has persisted and he has not tried any interventions. Of note, he mentions tylenol use initially but has not taken this in many days. He continues to tolerate diet, pass flatus and has had BM's. He additionally mentions that his BM's were initially normal, without any gross blood, change in stool caliber or color. About 2 days ago, patient noticed dark black stools for the first time. Yesterday, he continued to have dark black stools with increasing abdominal pain and mentions his stools "had the smell of blood." At 0430 this AM, patient had a BM with BRBPR--approximately 7-8 baby wipes worth prompting him to visit [facility]. He denies any recent NSAID or ASA use. Denies any hx of nausea, vomiting, diarrhea, constipation. Mentions having hemorrhoids in the past. Denies any associated fevers, chills, chest pain, SOB. Recent Travel: Denies PAST MEDICAL HISTORY: Anxiety, Depression PAST SURGICAL HISTORY: Hiatal hernia repair, CCY, Appendectomy (3 weeks ago) Social History: Smoking: Denies Alcohol: Denies Drugs: Denies Family History: Maternal side with Depression, Liver CA Allergies Penicillins Allergy (Verified 11/23/18 05:56) metoclopramide HCl [From Reglan] Adverse Reaction (Verified 11/23/18 05:56) HOME MEDICATIONS: Home Medications Medication Instructions Recorded Buspirone HCl [Buspar -] 15 mg PO TID 11/23/18 Paroxetine HCl [Paxil] 40 mg PO DAILY 11/23/18 REVIEW OF SYSTEMS As per HPI PHYSICAL EXAMINATION Vital Signs - 24 hr 11/23/18 11/23/18 11/23/18 05:49 08:45 14:44 Temperature 98.1 F 97.6 F Pulse Rate 103 H 79 Respiratory 18 18 Rate Blood Pressure 145/100 147/93 O2 Sat by Pulse 100 98 96 Oximetry (%) GENERAL: A&Ox3, NAD HEAD: NCAT EYES: PERRL, EOMI EARS, NOSE, THROAT: MMM NECK: Supple, No JVD LUNGS: CTAB, No wheezes, no crackles HEART: Regular rate and rhythm, normal S1 and S2 without murmur ABDOMEN: Soft, tender to light palpation throughout, not distended, hypoactive bowel sounds, no guarding, no rebound MUSCULOSKELETAL: No CVA tenderness EXTREMITIES: No peripheral edema. NEUROLOGICAL: Cranial nerves II-XII intact. Normal speech. Gross sensation intact throughout. 5/5 muscle strength throughout. SKIN: Warm, dry, healing laprascopic incisional scars without surrounding erythema, dishesence or drainage RECTAL: Deferred by patient Laboratory Last Values WBC 7.0 K/mm3 (4.0-10.0) 11/23/18 09:20 RBC 4.51 M/mm3 (4.00-5.60) 11/23/18 09:20 Hgb 13.6 GM/dL (11.7-16.9) 11/23/18 09:20 Hct 40.3 % (35.4-49) 11/23/18 09:20 MCV 89.3 fl (80-96) 11/23/18 09:20 MCH 30.2 pg (25.7-33.7) 11/23/18 09:20 MCHC 33.8 g/dl (32.0-35.9) 11/23/18 09:20 RDW 13.5 % (11.9-15.9) 11/23/18 09:20 Plt Count 281 K/MM3 (134-434) 11/23/18 09:20 MPV 8.1 fl (7.5-11.1) 11/23/18 09:20 Absolute Neuts (auto) 3.2 K/mm3 (1.5-8.0) 11/23/18 09:20 Neutrophils % 45.7 % (42.8-82.8) 11/23/18 09:20 Lymphocytes % 44.1 % (8-40) H 11/23/18 09:20 Monocytes % 7.8 % (3.8-10.2) 11/23/18 09:20 Eosinophils % 1.7 % (0-4.5) 11/23/18 09:20 Basophils % 0.7 % (0-2.0) 11/23/18 09:20 Nucleated RBC % 0 % (0-0) 11/23/18 09:20 PT with INR 12.10 SEC (9.7-13.0) 11/23/18 06:21 INR 1.03 (0.83-1.09) 11/23/18 06:21 PTT (Actin FS) 34.9 SECONDS (25.2-36.5) 11/23/18 06:21 Sodium 138 mmol/L (136-145) 11/23/18 06:21 Potassium 4.1 mmol/L (3.5-5.1) 11/23/18 06:21 Chloride 103 mmol/L (98-107) 11/23/18 06:21 Carbon Dioxide 28 mmol/L (21-32) 11/23/18 06:21 Anion Gap 7 MMOL/L (8-16) L 11/23/18 06:21 BUN 15.8 mg/dL (7-18) 11/23/18 06:21 Creatinine 1.2 mg/dL (0.55-1.3) 11/23/18 06:21 Est GFR (CKD-EPI)AfAm 90.89 11/23/18 06:21 Est GFR (CKD-EPI)NonAf 78.42 11/23/18 06:21 Random Glucose 100 mg/dL (74-106) 11/23/18 06:21 Calcium 9.2 mg/dL (8.5-10.1) 11/23/18 06:21 Total Bilirubin 0.2 mg/dL (0.2-1) 11/23/18 06:21 AST 14 U/L (15-37) L 11/23/18 06:21 ALT 31 U/L (13-61) 11/23/18 06:21 Alkaline Phosphatase 83 U/L (45-117) 11/23/18 06:21 Total Protein 7.3 g/dl (6.4-8.2) 11/23/18 06:21 Albumin 4.1 g/dl (3.4-5.0) 11/23/18 06:21 Lipase 126 U/L (73-393) 11/23/18 06:21 Urine Color Yellow 11/23/18 07:30 Urine Appearance Clear 11/23/18 07:30 Urine pH 6.0 (5.0-8.0) 11/23/18 07:30 Ur Specific [place] 1.014 (1.010-1.035) 11/23/18 07:30 Urine Protein Negative (NEGATIVE) 11/23/18 07:30 Urine Glucose (UA) Negative (NEGATIVE) 11/23/18 07:30 Urine Ketones Negative (NEGATIVE) 11/23/18 07:30 Urine Blood Negative (NEGATIVE) 11/23/18 07:30 Urine Nitrite Negative (NEGATIVE) 11/23/18 07:30 Urine Bilirubin Negative (NEGATIVE) 11/23/18 07:30 Urine Urobilinogen 0.2 mg/dL (0.2-1.0) 11/23/18 07:30 Ur Leukocyte Esterase Negative (NEGATIVE) 11/23/18 07:30 Stool Occult Blood Positive (NEGATIVE) 11/23/18 05:46 Blood Type A POSITIVE 11/23/18 06:40 Antibody Screen Negative 11/23/18 06:40 Active Medications Dextrose/Lactated Ringer's (D5-Lr -) 1,000 mls @ 100 mls/hr IV ASDIR FRANCISCO Morphine Sulfate (Morphine Sulfate) 1 mg IVPUSH Q4H PRN PRN Reason: PAIN LEVEL 6-10 Pantoprazole Sodium (Protonix Iv) 40 mg IVPUSH DAILY FRANCISCO IMAGING: CT A/P w/ oral and IV contrast: Status post cholecystectomy and appendectomy. Surgical sutures at the gastroesophageal junction. A few subcentimeter mesenteric lymph nodes in the right lower quadrant which are nonspecific. Correlate clinically to rule out mesenteric adenitis. A few tiny lymph nodes are also present in the right and left side of the pelvis. Questionable few diverticula in the colon without evidence of acute diverticulitis. No CT evidence of an acute process in the abdomen and pelvis. Correlate clinically to determine further evaluation and follow-up. ASSESSMENT/PLAN: 33 y/o M with PMHx of Anxiety, Depression and recent appendectomy (Dr. Tinajero, [place] on 11/04) presents with abdominal pain + BRBPR. #GI Bleed -hemorroidal bleed vs diverticular disease -Rectal exam defferred, FOBT positive, H&H Stable, VSS -Maintain 2 large bore IV's (>18 guage) -Vital signs Q4H; Call if HR > 100 or SBP < 100 -D5-LR @ 100 mls/hr -IV Pantoprazole 40mg Daily -Pain control via Morphine -NPO -Fall precautions -Supplemental O2 to maintain SpO2 > 90% -Avoid NSAIDs/ASA -Check H&H now, if remains stable will check Daily -Serial abdominal exams -GI and general surgery consulted #Anxiety, Depression -Continue Paroxetine, Buspirone after confirming meds with pharmacy #FEN -D5-LR @ 100 mls/hr -Lytes WNL, Replete PRN -NPO #PPx -DVT: SCDs; Will avoid chemical AC in the setting of possible LGIB Dispo: Admit to Med-Surg Visit type - Emergency Visit Emergency Visit: Yes ED Registration Date: 11/23/18 Care time: The patient presented to the Emergency Department on the above date and was hospitalized for further evaluation of their emergent condition. - New Patient This patient is new to me today: Yes Date on this admission: 11/23/18 - Critical Care Critical Care patient: No ATTENDING PHYSICIAN STATEMENT I saw and evaluated the patient. I reviewed the resident's note and discussed the case with the resident. I agree with the resident's findings and plan as documented. SUBJECTIVE: OBJECTIVE: ASSESSMENT AND PLAN:
[2018-11-23] MEDS: DEXTROSE 5%-LACTATED RINGERS 1,000 ML IV SCH (15:49)
[2018-11-23] MEDS: MORPHINE SULFATE 2 MG/ML VIAL IVPUSH PRN ×2 (15:51→21:49)
[2018-11-23 16:25] LABS: HEMATOCRIT 40.5 % (35.4-49); HEMOGLOBIN 13.2 GM/dL (11.7-16.9); MCH 29.4 pg (25.7-33.7); MCHC 32.6 g/dl (32.0-35.9); MEAN CELL VOLUME 89.9 fl (80-96); MEAN PLT VOLUME 8.4 fl (7.5-11.1); PLATELET COUNT 255 K/MM3 (134-434); RDW 13.7 % (11.9-15.9); WHITE BLOOD COUNT 5.1 K/mm3 (4.0-10.0)
--- NOTE | 2018-11-23 16:29 | PN ---
Teaching Attending Note Name of Resident: Jenniffer Valente ATTENDING PHYSICIAN STATEMENT I saw and evaluated the patient. I reviewed the resident's note and discussed the case with the resident. I agree with the resident's findings and plan as documented. SUBJECTIVE: This is a 33 year old man with a history of depression, anxiety, hemorrhoids, appendectomy 11/03 who comes to the ED complaining of abdominal pain and rectal bleeding. He says that he has had lower abdominal pain ever since the surgery. He went to the [facility] ED on 11/07 but signed out AMA. He took Tylenol without relief. Two days ago he noted his stools had become black and he thought he smelled blood. This morning, he passed maroon/pricsila colored stool with bright red blood. OBJECTIVE: Vital Signs Period Temp Pulse Resp BP Sys/Felder Pulse Ox Last 24 Hr 97.6 F-98.1 F 79-103 18-18 145-147/93-100 96-100 HEART: S1S2, RRR LUNGS: Clear ABDOMEN: Soft, non-distended, (+) suprapubic tenderness, normal BS EXTREMITIES: No edema Laboratory Tests 11/23/18 11/23/18 11/23/18 05:46 06:21 06:21 WBC 5.9 RBC 4.73 Hgb 14.4 Hct 42.4 MCV 89.6 MCH 30.4 MCHC 34.0 RDW 13.5 Plt Count 287 MPV 8.6 Absolute Neuts (auto) 2.7 Neutrophils % 45.8 D Lymphocytes % 42.7 H D Monocytes % 8.5 Eosinophils % 2.0 D Basophils % 1.0 D Nucleated RBC % 1 H PT with INR INR PTT (Actin FS) Sodium 138 Potassium 4.1 Chloride 103 Carbon Dioxide 28 Anion Gap 7 L BUN 15.8 Creatinine 1.2 Est GFR (CKD-EPI)AfAm 90.89 Est GFR (CKD-EPI)NonAf 78.42 Random Glucose 100 Calcium 9.2 Total Bilirubin 0.2 AST 14 L ALT 31 Alkaline Phosphatase 83 Total Protein 7.3 Albumin 4.1 Lipase Urine Color Urine Appearance Urine pH Ur Specific [place] Urine Protein Urine Glucose (UA) Urine Ketones Urine Blood Urine Nitrite Urine Bilirubin Urine Urobilinogen Ur Leukocyte Esterase Stool Occult Blood Positive Blood Type Antibody Screen 11/23/18 11/23/18 11/23/18 06:21 06:21 06:21 WBC RBC Hgb Hct MCV MCH MCHC RDW Plt Count MPV Absolute Neuts (auto) Neutrophils % Lymphocytes % Monocytes % Eosinophils % Basophils % Nucleated RBC % PT with INR 12.10 INR 1.03 PTT (Actin FS) 34.9 Sodium Potassium Chloride Carbon Dioxide Anion Gap BUN Creatinine Est GFR (CKD-EPI)AfAm Est GFR (CKD-EPI)NonAf Random Glucose Calcium Total Bilirubin AST ALT Alkaline Phosphatase Total Protein Albumin Lipase 126 Urine Color Urine Appearance Urine pH Ur Specific [place] Urine Protein Urine Glucose (UA) Urine Ketones Urine Blood Urine Nitrite Urine Bilirubin Urine Urobilinogen Ur Leukocyte Esterase Stool Occult Blood Blood Type Antibody Screen 11/23/18 11/23/18 11/23/18 06:40 07:30 09:20 WBC 7.0 RBC 4.51 Hgb 13.6 Hct 40.3 MCV 89.3 MCH 30.2 MCHC 33.8 RDW 13.5 Plt Count 281 MPV 8.1 Absolute Neuts (auto) 3.2 Neutrophils % 45.7 Lymphocytes % 44.1 H Monocytes % 7.8 Eosinophils % 1.7 Basophils % 0.7 Nucleated RBC % 0 PT with INR INR PTT (Actin FS) Sodium Potassium Chloride Carbon Dioxide Anion Gap BUN Creatinine Est GFR (CKD-EPI)AfAm Est GFR (CKD-EPI)NonAf Random Glucose Calcium Total Bilirubin AST ALT Alkaline Phosphatase Total Protein Albumin Lipase Urine Color Yellow Urine Appearance Clear Urine pH 6.0 Ur Specific [place] 1.014 Urine Protein Negative Urine Glucose (UA) Negative Urine Ketones Negative Urine Blood Negative Urine Nitrite Negative Urine Bilirubin Negative Urine Urobilinogen 0.2 Ur Leukocyte Esterase Negative Stool Occult Blood Blood Type A POSITIVE Antibody Screen Negative 11/23/18 16:00 WBC 5.1 RBC 4.50 Hgb 13.2 Hct 40.5 MCV 89.9 MCH 29.4 MCHC 32.6 RDW 13.7 Plt Count 255 MPV 8.4 Absolute Neuts (auto) Neutrophils % Lymphocytes % Monocytes % Eosinophils % Basophils % Nucleated RBC % PT with INR INR PTT (Actin FS) Sodium Potassium Chloride Carbon Dioxide Anion Gap BUN Creatinine Est GFR (CKD-EPI)AfAm Est GFR (CKD-EPI)NonAf Random Glucose Calcium Total Bilirubin AST ALT Alkaline Phosphatase Total Protein Albumin Lipase Urine Color Urine Appearance Urine pH Ur Specific [place] Urine Protein Urine Glucose (UA) Urine Ketones Urine Blood Urine Nitrite Urine Bilirubin Urine Urobilinogen Ur Leukocyte Esterase Stool Occult Blood Blood Type Antibody Screen Home Medications Medication Instructions Recorded Buspirone HCl [Buspar -] 15 mg PO TID 11/23/18 Paroxetine HCl [Paxil] 40 mg PO DAILY 11/23/18 ASSESSMENT AND PLAN: This is a 33 year old man with a history of depression, anxiety, hemorrhoids, appendectomy 11/03 who presented to the ED with abdominal pain and rectal bleeding. 1. Rectal bleeding, likely secondary to diverticular bleed - NPO - Pain control - IV fluid - Protonix - Monitor hemoglobin - Patient reports he had normal EGD ~3-4 months ago - GI, surgery input appreciated 2. Depression/anxiety - Continue Paxil, BuSpar
[2018-11-24] MEDS: DEXTROSE 5%-LACTATED RINGERS 1,000 ML IV SCH ×3 (01:00→23:00)
[2018-11-24 07:17] LABS: BASO % 0.9 % (0-2.0); EOS % 2.9 % (0-4.5); HEMATOCRIT 38.2 % (35.4-49); HEMOGLOBIN 12.9 GM/dL (11.7-16.9); LYMPH % 46.9 % (8-40); MCH 30.4 pg (25.7-33.7); MCHC 33.7 g/dl (32.0-35.9); MEAN CELL VOLUME 90.1 fl (80-96); MEAN PLT VOLUME 8.4 fl (7.5-11.1); MONO % 7.7 % (3.8-10.2); NEUT % 41.6 % (42.8-82.8); PLATELET COUNT 252 K/MM3 (134-434); RBC 4.25 M/mm3 (4.00-5.60); RDW 13.6 % (11.9-15.9); WHITE BLOOD COUNT 4.7 K/mm3 (4.0-10.0)
[2018-11-24 07:38] LABS: ALBUMIN 3.5 g/dl (3.4-5.0); BILIRUBIN,TOTAL 0.5 mg/dL (0.2-1); BLOOD UREA NITROGEN 9.1 mg/dL (7-18); CALCIUM 8.7 mg/dL (8.5-10.1); MAGNESIUM 2.1 mg/dL (1.8-2.4); PHOSPHOROUS 4.2 mg/dL (2.5-4.9); POTASSIUM 4.3 mmol/L (3.5-5.1); TOT PROT 6.3 g/dl (6.4-8.2)
[2018-11-24] MEDS ORDERED: PANTOPRAZOLE SODIUM 40 MG VIAL IVPUSH SCH (10:00)
[2018-11-24] MEDS: MORPHINE SULFATE 2 MG/ML VIAL IVPUSH PRN ×2 (10:08→21:02)
[2018-11-24 13:54] LABS: HEMATOCRIT 39.5 % (35.4-49); MCH 29.5 pg (25.7-33.7); MCHC 32.9 g/dl (32.0-35.9); MEAN CELL VOLUME 89.8 fl (80-96); MEAN PLT VOLUME 8.4 fl (7.5-11.1); PLATELET COUNT 232 K/MM3 (134-434); RDW 13.6 % (11.9-15.9); WHITE BLOOD COUNT 4.4 K/mm3 (4.0-10.0)
--- NOTE | 2018-11-24 16:34 | PN.GI ---
GI Progress Note Subjective: Found resting comfortably - Objective Vital Signs: Vital Signs Temperature 98.2 F 11/24/18 09:00 Pulse Rate 72 11/24/18 09:00 Respiratory Rate 18 11/24/18 09:00 Blood Pressure 142/86 11/24/18 09:00 O2 Sat by Pulse Oximetry (%) 99 11/24/18 09:00 Constitutional: Calm Eyes: No: Sclera Icterus Cardiovascular: Yes: Regular Rate and Rhythm Respiratory: Yes: CTA Bilaterally Gastrointestinal Inspection: Yes: Scars (trochar scars). No: Distention ...Auscultate: Yes: Normoactive Bowel Sounds ...Palpate: Yes: Soft, Tenderness (TTP diffusely) ...Percussion: No: Tympanitic Edema: No (No LE edema) Neurological: Yes: Alert Labs: CBC, BMP 11/24/18 13:29 11/24/18 06:30 INR, PTT INR 1.03 (0.83-1.09) 11/23/18 06:21 Problem List - Problems (1) GI bleed Assessment/Plan: Hemoglobin stable without overt bleeding today. Dark bowel movements described however normal BUN and stable H/H not suggestive of significant UGIB. Can reevaluate with EGD tomorrow and can have follow-up for colonoscopy when cleared from surgical standpoint. Discussed with patient. Discussed potential risks of the procedure like but not limited to bleeding / perforation requiring surgery to repair, infection, sedation medication effects all of which could be potentially life threatening. He has agreed to the procedure Unclear etiology of diffuse abdominal pain at this time. NPO IV hydration Unclear cause of predominantly lymphocytic CBC differential. Eval per primary team Code(s): K92.2 - GASTROINTESTINAL HEMORRHAGE, UNSPECIFIED Qualifiers: GI bleed type/associated pathology: unspecified gastrointestinal hemorrhage type Qualified Code(s): K92.2 - Gastrointestinal hemorrhage, unspecified
[2018-11-24] MEDS: PARoxetine HCL 20 MG TABLET PO SCH (18:03)
--- NOTE | 2018-11-24 18:25 | PN ---
Physical Exam: SUBJECTIVE: Patient seen and examined at the bedside. Has 1 episode of a loose stool with PRBPR this morning per the nurse. Has some abdominal pain, but is otherwise feeling ok. OBJECTIVE: Vital Signs Period Temp Pulse Resp BP Sys/Felder Pulse Ox Last 24 Hr 98.0 F-98.2 F 68-72 12-18 134-142/74-86 98-99 GENERAL: The patient is awake, alert, and fully oriented, in no acute distress. HEAD: Normal with no signs of trauma. EYES: PERRL, extraocular movements intact, sclera anicteric, conjunctiva clear. No ptosis. ENT: Ears normal, nares patent, oropharynx clear without exudates, moist mucous membranes. NECK: Trachea midline, full range of motion, supple. LUNGS: Breath sounds equal, clear to auscultation bilaterally, no wheezes, no crackles, no accessory muscle use. HEART: Regular rate and rhythm, S1, S2 without murmur, rub or gallop. ABDOMEN: Soft, diffusely tender to palpation throughout, nondistended, normoactive bowel sounds, no guarding, no rebound EXTREMITIES: 2+ pulses, warm, well-perfused, no edema. NEUROLOGICAL: Cranial nerves II through XII grossly intact. Normal speech, gait not observed. PSYCH: Normal mood, normal affect. SKIN: Warm, dry, normal turgor, no rashes or lesions noted, healing laprascopic incisional scars without surrounding erythema, dishesence or drainage Laboratory Results - last 24 hr 11/24/18 11/24/18 11/24/18 06:30 06:30 13:29 WBC 4.7 4.4 RBC 4.25 4.40 Hgb 12.9 13.0 Hct 38.2 39.5 MCV 90.1 89.8 MCH 30.4 29.5 MCHC 33.7 32.9 RDW 13.6 13.6 Plt Count 252 232 MPV 8.4 8.4 Absolute Neuts (auto) 2.0 Neutrophils % 41.6 L Lymphocytes % 46.9 H Monocytes % 7.7 Eosinophils % 2.9 Basophils % 0.9 Nucleated RBC % 0 Sodium 138 Potassium 4.3 Chloride 103 Carbon Dioxide 30 Anion Gap 5 L BUN 9.1 Creatinine 1.0 Est GFR (CKD-EPI)AfAm 113.31 Est GFR (CKD-EPI)NonAf 97.76 Random Glucose 89 Calcium 8.7 Phosphorus 4.2 Magnesium 2.1 Total Bilirubin 0.5 AST 14 L ALT 25 Alkaline Phosphatase 73 Total Protein 6.3 L Albumin 3.5 Active Medications Generic Name Dose Route Start Last Admin Trade Name Freq PRN Reason Stop Dose Admin Buspirone HCl 15 mg 11/24/18 22:00 Buspar - PO TID [facility] Dextrose/Lactated Ringer's 1,000 mls @ 100 mls/hr 11/23/18 15:30 11/24/18 11: 19 D5-Lr - IV 100 mls/hr ASDIR [facility] Administration Morphine Sulfate 1 mg 11/23/18 15:23 11/24/18 10:08 Morphine Sulfate IVPUSH 1 mg Q4H PRN Administration PAIN LEVEL 6-10 Pantoprazole Sodium 20 mg 11/25/18 10:00 Protonix - PO DAILY [facility] Paroxetine HCl 40 mg 11/24/18 17:15 11/24/18 18:03 Paxil - PO 40 mg DAILY [facility] Administration ASSESSMENT/PLAN: 33 y/o M with PMHx of Anxiety, Depression and recent appendectomy (Dr. Tinajero, [place] on 11/04) presents with abdominal pain + BRBPR. #GI Bleed- most likely due to diverticulosis -FOBT positive, H&H Stable, VSS -Maintain 2 large bore IV's (>18 guage) -Vital signs Q4H; Call if HR > 100 or SBP < 100 -D5-LR @ 100 mls/hr -IV Pantoprazole 40mg Daily -Pain control via Morphine -NPO -Fall precautions -Supplemental O2 to maintain SpO2 > 90% -Avoid NSAIDs/ASA -F/U PM H/H -check H/H Daily -Serial abdominal exams -GI and general surgery consulted -Dr. Tinajero following, appreciate recommendations -per his note bleed is most likely 2/2 diverticulosis. No surgical intervention at this time. - Dr. Reyes following, appreciate recommendations -Per his note normal BUN and stable H/H not suggestive of significant UGIB. - Plan for EGD tomorrow and can have follow-up for colonoscopy when cleared from surgical standpoint. #Anxiety, Depression -Continue Paroxetine, Buspirone after confirming meds with pharmacy #FEN -D5-LR @ 100 mls/hr -Lytes WNL, Replete PRN -NPO #PPx -DVT: SCDs; Will avoid chemical AC in the setting of possible LGIB Dispo: continue to monitor for overt GI bleed, Med-Surg Visit type - Emergency Visit Emergency Visit: Yes ED Registration Date: 11/23/18 Care time: The patient presented to the Emergency Department on the above date and was hospitalized for further evaluation of their emergent condition. - New Patient This patient is new to me today: Yes Date on this admission: 11/24/18 - Critical Care Critical Care patient: No - Discharge Referral Referred to [facility] No ATTENDING PHYSICIAN STATEMENT I saw and evaluated the patient. I reviewed the resident's note and discussed the case with the resident. I agree with the resident's findings and plan as documented. SUBJECTIVE: OBJECTIVE: ASSESSMENT AND PLAN:
[2018-11-24] MEDS ORDERED: PT OWN MED DRAWER 7, Y5N ONE ×2 (19:37→21:01)
--- NOTE | 2018-11-24 20:06 | PN ---
Teaching Attending Note Name of Resident: Constanza Dewitt ATTENDING PHYSICIAN STATEMENT I saw and evaluated the patient. I reviewed the resident's note and discussed the case with the resident. I agree with the resident's findings and plan as documented. SUBJECTIVE: Patient continues to complain of having GI bleed on and off. OBJECTIVE: Vital Signs Temperature 98.2 F 11/24/18 09:00 Pulse Rate 72 11/24/18 09:00 Respiratory Rate 18 11/24/18 09:00 Blood Pressure 142/86 11/24/18 09:00 O2 Sat by Pulse Oximetry (%) 99 11/24/18 09:00 GENERAL: The patient is awake, alert, and fully oriented, in no acute distress. HEAD: Normal with no signs of trauma. EYES: PERRL, extraocular movements intact, sclera anicteric, conjunctiva clear. ENT: Ears normal, oropharynx clear without exudates, moist mucous membranes. NECK: Trachea midline, full range of motion, supple. LUNGS: Breath sounds equal, clear to auscultation bilaterally, no wheezes, no crackles, no accessory muscle use. HEART: Regular rate and rhythm, S1, S2 without murmur, rub or gallop. ABDOMEN: Soft, NT, ND,, normoactive bowel sounds, no guarding, no rebound, no hepatosplenomegaly, no masses. EXTREMITIES: 2+ pulses, warm, well-perfused, no edema. NEUROLOGICAL: Cranial nerves II through XII grossly intact. Normal speech, gait is stable PSYCH: Normal mood, normal affect. SKIN: Warm, dry, normal turgor, no rashes or lesions noted CBCD WBC 4.4 K/mm3 (4.0-10.0) 11/24/18 13:29 RBC 4.40 M/mm3 (4.00-5.60) 11/24/18 13:29 Hgb 13.0 GM/dL (11.7-16.9) 11/24/18 13:29 Hct 39.5 % (35.4-49) 11/24/18 13:29 MCV 89.8 fl (80-96) 11/24/18 13:29 MCHC 32.9 g/dl (32.0-35.9) 11/24/18 13: RDW 13.6 % (11.9-15.9) 11/24/18 13:29 Plt Count 232 K/MM3 (134-434) 11/24/18 13:29 MPV 8.4 fl (7.5-11.1) 11/24/18 13:29 CMP Sodium 138 mmol/L (136-145) 11/24/18 06:30 Potassium 4.3 mmol/L (3.5-5.1) 11/24/18 06:30 Chloride 103 mmol/L (98-107) 11/24/18 06:30 Carbon Dioxide 30 mmol/L (21-32) 11/24/18 06:30 Anion Gap 5 MMOL/L (8-16) L 11/24/18 06:30 BUN 9.1 mg/dL (7-18) 11/24/18 06:30 Creatinine 1.0 mg/dL (0.55-1.3) 11/24/18 06:30 Random Glucose 89 mg/dL (74-106) 11/24/18 06:30 Calcium 8.7 mg/dL (8.5-10.1) 11/24/18 06:30 Total Bilirubin 0.5 mg/dL (0.2-1) 11/24/18 06:30 AST 14 U/L (15-37) L 11/24/18 06:30 ALT 25 U/L (13-61) 11/24/18 06:30 Alkaline Phosphatase 73 U/L (45-117) 11/24/18 06:30 Total Protein 6.3 g/dl (6.4-8.2) L 11/24/18 06:30 Albumin 3.5 g/dl (3.4-5.0) 11/24/18 06:30 Current Medications Generic Name Dose Route Start Last Admin Trade Name Freq PRN Reason Stop Dose Admin Buspirone HCl 15 mg 11/24/18 22:00 Buspar - PO TID [facility] Dextrose/Lactated Ringer's 1,000 mls @ 100 mls/hr 11/23/18 15:30 11/24/18 11: 19 D5-Lr - IV 100 mls/hr ASDIR [facility] Administration Morphine Sulfate 1 mg 11/23/18 15:23 11/24/18 10:08 Morphine Sulfate IVPUSH 1 mg Q4H PRN Administration PAIN LEVEL 6-10 Pantoprazole Sodium 20 mg 11/25/18 10:00 Protonix - PO DAILY [facility] Paroxetine HCl 40 mg 11/24/18 17:15 11/24/18 18:03 Paxil - PO 40 mg DAILY [facility] Administration Home Medications Medication Instructions Recorded Buspirone HCl [Buspar -] 15 mg PO TID 11/23/18 Paroxetine HCl [Paxil] 40 mg PO DAILY 11/23/18 ASSESSMENT AND PLAN: This is a 33 year old man with a history of depression, anxiety, hemorrhoids, appendectomy 11/03 who presented to the ED with abdominal pain and rectal bleeding. #Rectal bleeding, likely secondary to diverticular bleed , GI on the case, monitor H/H so far is stable #Depression/anxiety: continue home meds Paxil, BuSpar will be evaluated with EGD tomorrow by and can have follow-up for colonoscopy when cleared from surgical standpoint continues to have bleeding on and off DVT Px: SCds
[2018-11-24] MEDS: busPIRone HCL 5 MG TABLET PO SCH (21:02)
[2018-11-25] MEDS: MORPHINE SULFATE 2 MG/ML VIAL IVPUSH PRN ×2 (04:46→20:23)
[2018-11-25] MEDS ORDERED: PT OWN MED DRAWER 7, Y5N ONE ×2 (05:18→20:54)
[2018-11-25] MEDS: busPIRone HCL 5 MG TABLET PO SCH ×3 (05:19→21:11)
[2018-11-25 08:57] LABS: HEMATOCRIT 37.6 % (35.4-49); HEMOGLOBIN 12.6 GM/dL (11.7-16.9); MCHC 33.6 g/dl (32.0-35.9); MEAN CELL VOLUME 89.2 fl (80-96); MEAN PLT VOLUME 8.4 fl (7.5-11.1); PLATELET COUNT 253 K/MM3 (134-434); RBC 4.21 M/mm3 (4.00-5.60); RDW 13.5 % (11.9-15.9)
[2018-11-25] MEDS: DEXTROSE 5%-LACTATED RINGERS 1,000 ML IV SCH ×2 (09:05→20:19)
--- NOTE | 2018-11-25 09:05 | PN ---
Physical Exam: SUBJECTIVE: Patient seen and examined at the bedside. The patient had 2 episodes of bloody stools overnight. Reports he had increased abdominal pain but morphine helped. VSS overnight, NPO since 12am, had EGD today with Dr. Reyes. OBJECTIVE: Vital Signs Period Temp Pulse Resp BP Sys/Felder Pulse Ox Last 24 Hr 78.3 F-98.3 F 72-81 16-21 129-146/74-81 99 GENERAL: The patient is awake, alert, and fully oriented, in no acute distress. HEAD: Normal with no signs of trauma. EYES: PERRL, extraocular movements intact, sclera anicteric, conjunctiva clear. No ptosis. ENT: Ears normal, nares patent, oropharynx clear without exudates, moist mucous membranes. NECK: Trachea midline, full range of motion, supple. LUNGS: Breath sounds equal, clear to auscultation bilaterally, no wheezes, no crackles, no accessory muscle use. HEART: Regular rate and rhythm, S1, S2 without murmur. ABDOMEN: Soft, diffusely tender to palpation throughout, nondistended, normoactive bowel sounds, no guarding, no rebound EXTREMITIES: 2+ pulses, warm, well-perfused, no edema. NEUROLOGICAL: Cranial nerves II through XII grossly intact. Normal speech, gait not observed. PSYCH: Normal mood, normal affect. SKIN: Warm, dry, normal turgor, no rashes or lesions noted, healing laprascopic incisional scars without surrounding erythema, dishesence or drainage Laboratory Results - last 24 hr 11/24/18 11/25/18 13:29 08:16 WBC 4.4 5.0 RBC 4.40 4.21 Hgb 13.0 12.6 Hct 39.5 37.6 MCV 89.8 89.2 MCH 29.5 30.0 MCHC 32.9 33.6 RDW 13.6 13.5 Plt Count 232 253 MPV 8.4 8.4 Active Medications Generic Name Dose Route Start Last Admin Trade Name Freq PRN Reason Stop Dose Admin Buspirone HCl 15 mg 11/24/18 22:00 11/25/18 05:19 Buspar - PO 15 mg TID [facility] Administration Dextrose/Lactated Ringer's 1,000 mls @ 100 mls/hr 11/23/18 15:30 11/24/18 23: 00 D5-Lr - IV 100 mls/hr ASDIR [facility] Administration Morphine Sulfate 1 mg 11/23/18 15:23 11/25/18 04:46 Morphine Sulfate IVPUSH 1 mg Q4H PRN Administration PAIN LEVEL 6-10 Pantoprazole Sodium 20 mg 11/25/18 10:00 Protonix - PO DAILY [facility] Paroxetine HCl 40 mg 11/24/18 17:15 11/24/18 18:03 Paxil - PO 40 mg DAILY [facility] Administration ASSESSMENT/PLAN: 33 y/o M with PMHx of Anxiety, Depression and recent appendectomy (Dr. Tinajero, [place] on 11/04) presents with abdominal pain + BRBPR. #GI Bleed- most likely due to diverticulosis -FOBT positive, H&H Stable (13 yesterday, 12.6 today), VSS -D5-LR @ 100 mls/hr -IV Pantoprazole 20mg Daily -Morphine for pain -Avoid NSAIDs/ASA -F/U H/H Daily -Serial abdominal exams -GI and general surgery consulted -Dr. Tinajero following, appreciate recommendations -per his note bleed is most likely 2/2 diverticulosis. No surgical intervention at this time. -patient can follow up for colonoscopy 4-6 weeks after appendectomy ( performed 11/04). - Dr. Reyes following, appreciate recommendations -EGD performed today. Evidence of antrum with erosions and gastritis. Patient can follow up as an out patient for colonoscopy after being cleared by surgery. -Will continue to monitor patient patient for another day to make sure H/H remains stable -NPO #Anxiety, Depression -Continue Paroxetine, Buspirone after confirming meds with pharmacy #FEN -D5-LR @ 100 mls/hr -Ana WNL, Replete PRN -NPO #PPx -DVT: SCDs; Will avoid chemical AC in the setting of possible LGIB Dispo: Will continue to monitor patient on med-surg Visit type - Emergency Visit Emergency Visit: Yes ED Registration Date: 11/23/18 Care time: The patient presented to the Emergency Department on the above date and was hospitalized for further evaluation of their emergent condition. - New Patient This patient is new to me today: No - Critical Care Critical Care patient: No - Discharge Referral Referred to [facility] No ATTENDING PHYSICIAN STATEMENT I saw and evaluated the patient. I reviewed the resident's note and discussed the case with the resident. I agree with the resident's findings and plan as documented. SUBJECTIVE: OBJECTIVE: ASSESSMENT AND PLAN:
--- NOTE | 2018-11-25 11:03 | PN ---
Teaching Attending Note Name of Resident: Constanza Dewitt ATTENDING PHYSICIAN STATEMENT I saw and evaluated the patient. I reviewed the resident's note and discussed the case with the resident. I agree with the resident's findings and plan as documented. SUBJECTIVE: Patient is s/p EGD today, as per patient continues to have clots and blood in the stool, on and off. OBJECTIVE: Vital Signs Temperature 97.8 F 11/25/18 10:00 Pulse Rate 71 11/25/18 10:00 Respiratory Rate 18 11/25/18 10:00 Blood Pressure 132/76 11/25/18 10:00 O2 Sat by Pulse Oximetry (%) 99 11/25/18 09:00 GENERAL: The patient is awake, alert, and fully oriented, in no acute distress. HEAD: Normal with no signs of trauma. EYES: PERRL, extraocular movements intact, sclera anicteric, conjunctiva clear. ENT: Ears normal, oropharynx clear without exudates, moist mucous membranes. NECK: Trachea midline, full range of motion, supple. LUNGS: Breath sounds equal, clear to auscultation bilaterally, no wheezes, no crackles, no accessory muscle use. HEART: Regular rate and rhythm, S1, S2 without murmur, rub or gallop. ABDOMEN: Soft, NT,ND, normoactive bowel sounds, no guarding, no rebound, no hepatosplenomegaly, no masses. EXTREMITIES: 2+ pulses, warm, well-perfused, no edema. NEUROLOGICAL: Cranial nerves II through XII grossly intact. Normal speech, gait is stable . PSYCH: Normal mood, normal affect. SKIN: Warm, dry, normal turgor, no rashes or lesions noted CBCD WBC 5.0 K/mm3 (4.0-10.0) 11/25/18 08:16 RBC 4.21 M/mm3 (4.00-5.60) 11/25/18 08:16 Hgb 12.6 GM/dL (11.7-16.9) 11/25/18 08:16 Hct 37.6 % (35.4-49) 11/25/18 08:16 MCV 89.2 fl (80-96) 11/25/18 08:16 MCHC 33.6 g/dl (32.0-35.9) 11/25/18 08:16 RDW 13.5 % (11.9-15.9) 11/25/18 08:16 Plt Count 253 K/MM3 (134-434) 11/25/18 08:16 MPV 8.4 fl (7.5-11.1) 11/25/18 08:16 CMP Sodium 138 mmol/L (136-145) 11/24/18 06:30 Potassium 4.3 mmol/L (3.5-5.1) 11/24/18 06:30 Chloride 103 mmol/L (98-107) 11/24/18 06:30 Carbon Dioxide 30 mmol/L (21-32) 11/24/18 06:30 Anion Gap 5 MMOL/L (8-16) L 11/24/18 06:30 BUN 9.1 mg/dL (7-18) 11/24/18 06:30 Creatinine 1.0 mg/dL (0.55-1.3) 11/24/18 06:30 Random Glucose 89 mg/dL (74-106) 11/24/18 06:30 Calcium 8.7 mg/dL (8.5-10.1) 11/24/18 06:30 Total Bilirubin 0.5 mg/dL (0.2-1) 11/24/18 06:30 AST 14 U/L (15-37) L 11/24/18 06:30 ALT 25 U/L (13-61) 11/24/18 06:30 Alkaline Phosphatase 73 U/L (45-117) 11/24/18 06:30 Total Protein 6.3 g/dl (6.4-8.2) L 11/24/18 06:30 Albumin 3.5 g/dl (3.4-5.0) 11/24/18 06:30 Current Medications Generic Name Dose Route Start Last Admin Trade Name Freq PRN Reason Stop Dose Admin Buspirone HCl 15 mg 11/24/18 22:00 11/25/18 05:19 Buspar - PO 15 mg TID [facility] Administration Dextrose/Lactated Ringer's 1,000 mls @ 100 mls/hr 11/23/18 15:30 11/25/18 09: 05 D5-Lr - IV 100 mls/hr ASDIR [facility] Administration Morphine Sulfate 1 mg 11/23/18 15:23 11/25/18 04:46 Morphine Sulfate IVPUSH 1 mg Q4H PRN Administration PAIN LEVEL 6-10 Pantoprazole Sodium 20 mg 11/25/18 10:00 Protonix - PO DAILY [facility] Paroxetine HCl 40 mg 11/24/18 17:15 11/24/18 18:03 Paxil - PO 40 mg DAILY [facility] Administration Home Medications Medication Instructions Recorded Buspirone HCl [Buspar -] 15 mg PO TID 11/23/18 Paroxetine HCl [Paxil] 40 mg PO DAILY 11/23/18 Laboratory Tests 11/23/18 05:46 Stool Occult Blood Positive ASSESSMENT AND PLAN: This is a 33 year old man with a history of depression, anxiety, hemorrhoids, appendectomy 11/03 who presented to the ED with abdominal pain and rectal bleeding. #s/p EGD by ; result: the mucosa is normal , 2 small erosions were found in the gastric antrum, retroflexed views in the stomach revealed no abnormalities. as per GI recommendations to avoid NSAIDs, colonscopy when timing allows. Rectal bleeding, likely secondary to diverticular bleed. Continue Protonix #Depression/anxiety: continue home meds Paxil, BuSpar colonoscopy when timing allows . surgeon dr khan. DVT px: SCds
--- NOTE | 2018-11-25 11:41 | PN ---
Progress Note (short form) - Note Progress Note: EGD complete. Procedure report left in procedureal section of physical chart and will be scanned into [employer] Problem List - Problems (1) GI bleed Code(s): K92.2 - GASTROINTESTINAL HEMORRHAGE, UNSPECIFIED Qualifiers: GI bleed type/associated pathology: unspecified gastrointestinal hemorrhage type Qualified Code(s): K92.2 - Gastrointestinal hemorrhage, unspecified
[2018-11-25] MEDS: PARoxetine HCL 20 MG TABLET PO SCH (12:29)
[2018-11-25] MEDS: PANTOPRAZOLE 20 MG TABLET (FP) PO SCH (12:30)
[2018-11-25] MEDS: HYDROCORTISONE ACETATE 25 MG/SUPP.RECT PR SCH ×2 (14:18→22:00)
[2018-11-26] MEDS: busPIRone HCL 5 MG TABLET PO SCH ×2 (05:21→14:01)
[2018-11-26] MEDS: DEXTROSE 5%-LACTATED RINGERS 1,000 ML IV SCH (06:18)
[2018-11-26] MEDS ORDERED: PT OWN MED DRAWER 7, Y5N ONE ×2 (09:08→14:00)
[2018-11-26] MEDS: PANTOPRAZOLE 20 MG TABLET (FP) PO SCH (09:13)
[2018-11-26] MEDS: HYDROCORTISONE ACETATE 25 MG/SUPP.RECT PR SCH (09:13)
[2018-11-26] MEDS: PARoxetine HCL 20 MG TABLET PO SCH (09:13)
[2018-11-26 09:22] LABS: HEMATOCRIT 38.5 % (35.4-49); HEMOGLOBIN 12.9 GM/dL (11.7-16.9); MCH 30.3 pg (25.7-33.7); MCHC 33.6 g/dl (32.0-35.9); MEAN CELL VOLUME 90.1 fl (80-96); MEAN PLT VOLUME 8.5 fl (7.5-11.1); PLATELET COUNT 247 K/MM3 (134-434); RBC 4.28 M/mm3 (4.00-5.60); RDW 13.4 % (11.9-15.9); WHITE BLOOD COUNT 4.7 K/mm3 (4.0-10.0)
--- NOTE | 2018-11-26 09:54 | PN ---
Progress Note, Physician History of Present Illness: 33 yo male PMH anxiety, depression, hemorrhoids, s/p hiatal hernia repair 2014 at [facility], s/p cholecysteoctomy for acute cholecytitis, s/p Laparoscopic appendectomy for acute appendicitis 11/03/2018 complains of episodes of dark stool starting yesterday, today bloody stool. - Current Medication List Current Medications: Active Medications Buspirone HCl (Buspar -) 15 mg PO TID [facility] Last Admin: 11/26/18 05:21 Dose: 15 mg Hydrocortisone Acetate (Anusol Hc Suppository -) 25 mg ME BID [facility] Stop: 11/30/18 11:44 Last Admin: 11/26/18 09:13 Dose: 25 mg Dextrose/Lactated Ringer's (D5-Lr -) 1,000 mls @ 100 mls/hr IV ASDIR [facility] Last Admin: 11/26/18 06:18 Dose: 100 mls/hr Morphine Sulfate (Morphine Sulfate) 1 mg IVPUSH Q4H PRN PRN Reason: PAIN LEVEL 6-10 Last Admin: 11/25/18 20:23 Dose: 1 mg Pantoprazole Sodium (Protonix -) 20 mg PO DAILY [facility] Last Admin: 11/26/18 09:13 Dose: 20 mg Paroxetine HCl (Paxil -) 40 mg PO DAILY [facility] Last Admin: 11/26/18 09:13 Dose: 40 mg - Objective Vital Signs: Vital Signs Temperature 97.9 F 11/26/18 06:00 Pulse Rate 64 11/26/18 06:00 Respiratory Rate 16 11/26/18 06:00 Blood Pressure 134/78 11/26/18 06:00 O2 Sat by Pulse Oximetry (%) 99 11/25/18 21:00 Vital Signs Period Temp Pulse Resp BP Sys/Felder Pulse Ox Last 24 Hr 97.8 F-98 F 64-76 16-20 118-134/56-78 99-100 Labs: CBC, BMP 11/24/18 06:30 INR, PTT INR 1.03 (0.83-1.09) 11/23/18 06:21 Problem List - Problems (1) GI bleed Code(s): K92.2 - GASTROINTESTINAL HEMORRHAGE, UNSPECIFIED Qualifiers: GI bleed type/associated pathology: unspecified gastrointestinal hemorrhage type Qualified Code(s): K92.2 - Gastrointestinal hemorrhage, unspecified (2) Anxiety Code(s): F41.9 - ANXIETY DISORDER, UNSPECIFIED (3) Depression Code(s): F32.9 - MAJOR DEPRESSIVE DISORDER, SINGLE EPISODE, UNSPECIFIED (4) Abdominal pain Code(s): R10.9 - UNSPECIFIED ABDOMINAL PAIN Qualifiers: Abdominal location: left lower quadrant Qualified Code(s): R10.32 - Left lower quadrant pain
[2018-11-26] MEDS: MORPHINE SULFATE 2 MG/ML VIAL IVPUSH PRN (12:16)
[2018-11-26 17:47] VITALS: BP 119/81; PULSE 89; TEMP 98.1
--- NOTE | 2018-11-26 18:28 | DS ---
Physical Exam: SUBJECTIVE: Patient seen and examined Patient is feeling better with no acute distress. no further bleed today. OBJECTIVE: Vital Signs Temperature 98.1 F 11/26/18 17:00 Pulse Rate 89 11/26/18 17:00 Respiratory Rate 20 11/26/18 17:00 Blood Pressure 119/81 11/26/18 17:00 O2 Sat by Pulse Oximetry (%) 98 11/26/18 09:00 GENERAL: The patient is awake, alert, and fully oriented, in no acute distress. HEAD: Normal with no signs of trauma. EYES: PERRL, extraocular movements intact, sclera anicteric, conjunctiva clear. ENT: Ears normal, nares patent, oropharynx clear without exudates, moist mucous membranes. NECK: Trachea midline, full range of motion, supple. LUNGS: Breath sounds equal, clear to auscultation bilaterally, no wheezes, no crackles, no accessory muscle use. HEART: Regular rate and rhythm, S1, S2 without murmur, rub or gallop. ABDOMEN: Soft, nontender, nondistended, normoactive bowel sounds, no guarding, no rebound, no hepatosplenomegaly, no masses. EXTREMITIES: 2+ pulses, warm, well-perfused, no edema. NEUROLOGICAL: Cranial nerves II through XII grossly intact. Normal speech, gait not observed. PSYCH: Normal mood, normal affect. SKIN: Warm, dry, normal turgor, no rashes or lesions noted. LABS CBCD WBC 4.7 K/mm3 (4.0-10.0) 11/26/18 08:00 RBC 4.28 M/mm3 (4.00-5.60) 11/26/18 08:00 Hgb 12.9 GM/dL (11.7-16.9) 11/26/18 08:00 Hct 38.5 % (35.4-49) 11/26/18 08:00 MCV 90.1 fl (80-96) 11/26/18 08:00 MCHC 33.6 g/dl (32.0-35.9) 11/26/18 08:00 RDW 13.4 % (11.9-15.9) 11/26/18 08:00 Plt Count 247 K/MM3 (134-434) 11/26/18 08:00 MPV 8.5 fl (7.5-11.1) 11/26/18 08:00 CMP Sodium 138 mmol/L (136-145) 11/24/18 06:30 Potassium 4.3 mmol/L (3.5-5.1) 11/24/18 06:30 Chloride 103 mmol/L (98-107) 11/24/18 06:30 Carbon Dioxide 30 mmol/L (21-32) 11/24/18 06:30 Anion Gap 5 MMOL/L (8-16) L 11/24/18 06:30 BUN 9.1 mg/dL (7-18) 11/24/18 06:30 Creatinine 1.0 mg/dL (0.55-1.3) 11/24/18 06:30 Random Glucose 89 mg/dL (74-106) 11/24/18 06:30 Calcium 8.7 mg/dL (8.5-10.1) 11/24/18 06:30 Total Bilirubin 0.5 mg/dL (0.2-1) 11/24/18 06:30 AST 14 U/L (15-37) L 11/24/18 06:30 ALT 25 U/L (13-61) 11/24/18 06:30 Alkaline Phosphatase 73 U/L (45-117) 11/24/18 06:30 Total Protein 6.3 g/dl (6.4-8.2) L 11/24/18 06:30 Albumin 3.5 g/dl (3.4-5.0) 11/24/18 06:30 Current Medications Generic Name Dose Route Start Last Admin Trade Name Freq PRN Reason Stop Dose Admin Buspirone HCl 15 mg 11/24/18 22:00 11/26/18 14:01 Buspar - PO 15 mg TID [facility] Administration Hydrocortisone Acetate 25 mg 11/25/18 11:45 11/26/18 09:13 Anusol Hc Suppository - CA 11/30/18 11:44 25 mg BID [facility] Administration Dextrose/Lactated Ringer's 1,000 mls @ 100 mls/hr 11/23/18 15:30 11/26/18 06: 18 D5-Lr - IV 100 mls/hr ASDIR [facility] Administration Morphine Sulfate 1 mg 11/23/18 15:23 11/26/18 12:16 Morphine Sulfate IVPUSH 1 mg Q4H PRN Administration PAIN LEVEL 6-10 Pantoprazole Sodium 20 mg 11/25/18 10:00 11/26/18 09:13 Protonix - PO 20 mg DAILY [facility] Administration Paroxetine HCl 40 mg 11/24/18 17:15 11/26/18 09:13 Paxil - PO 40 mg DAILY [facility] Administration Home Medications Medication Instructions Recorded Buspirone HCl [Buspar -] 15 mg PO TID 11/23/18 Paroxetine HCl [Paxil] 40 mg PO DAILY 11/23/18 HOSPITAL COURSE: Date of Admission:11/23/18 Date of Discharge: 11/26/18 This is a 33 year old man with a history of depression, anxiety, hemorrhoids, appendectomy 11/03 who presented to the ED with abdominal pain and rectal bleeding. #s/p EGD by ; result: the mucosa is normal , 2 small erosions were found in the gastric antrum, retroflexed views in the stomach revealed no abnormalities. as per GI recommendations to avoid NSAIDs, colonscopy when timing allows. Rectal bleeding, likely secondary to diverticular bleed. Continue Protonix. Needs colonoscopy after is cleared by the surgeon since had recent surgery. #Depression/anxiety: continue home meds Paxil, BuSpar colonoscopy when timing allows . surgeon dr khan. follow with dr chowdary and dr tinajero closely Minutes to complete discharge: 35 Discharge Summary Reason For Visit: GASTROINTESTINAL HEMORRHAGE Current Active Problems Abdominal pain (Acute) Anxiety (Acute) Depression (Acute) GI bleed (Acute) Rectal bleeding (Acute) Condition: Stable - Instructions Diet, Activity, Other Instructions: Please follow with dr Chowdary in [address] Tinajero in one week Continue taking protonix until you see dr. Chowdary If the bleeding continues please come back to the emergency room. Referrals: Yovani Chowdary DO [Staff Physician] - 2 Weeks Smooth Tinajero MD [Staff Physician] - 1 Week - Home Medications Comprehensive Discharge Medication List: Ambulatory Orders Buspirone HCl [Buspar -] 15 mg PO TID 11/23/18 Paroxetine HCl [Paxil] 40 mg PO DAILY 11/23/18 This patient is new to me today: No Emergency Visit: Yes ED Registration Date: 11/23/18 Care time: The patient presented to the Emergency Department on the above date and was hospitalized for further evaluation of their emergent condition. Critical Care patient: No - Discharge Referral Referred to [facility] No
--- NOTE | 2018-11-29 17:06 | PATH ---
Surgical Pathology Report Patient Name: EMILY JIMENEZ Med. Rec. #: [id number] /Age/Gender: 1985 (Age: 33) / M Account: [id number] Location: [address] [place] [address]/[facility] Taken: 11/25/2018 Received: 11/25/2018 Reported: 11/29/2018 Physicians: Quentin Reyes D.O. Specimen(s) Received A: ANTRUM EROSIONS B: ANGULARIRS AND BODY Clinical History GI bleed. Postoperative diagnosis: Antrum erosions, gastritis Final Diagnosis A. STOMACH, ANTRUM, EROSIONS, BIOPSY: GASTRIC ANTRAL MUCOSA WITH MILD CHRONIC GASTRITIS. IMMUNOHISTOCHEMICAL STAIN FOR H. PYLORI IS NEGATIVE. B. STOMACH, ANGULARIS AND BODY, BIOPSY: GASTRIC BODY MUCOSA WITH MILD CHRONIC GASTRITIS. IMMUNOHISTOCHEMICAL STAIN FOR H. PYLORI IS NEGATIVE. Electronically Signed Kelle Melchor M.D. Gross Description A. Received in formalin, labeled "antrum erosions" are 2 choi, irregular portions of soft tissue, each measuring 0.2 cm. in greatest dimension. The specimens are submitted in toto in one cassette. B. Received in formalin, labeled "angularis and body" are 2 chio, irregular portions of soft tissue measuring 0.3 cm and 0.6 cm. in greatest dimension. The specimens are submitted in toto in one cassette. AE/11/25/2018 ebram/11/25/2018
== END 2018-11-26 19:12 | disposition home or self-care (01) | DRG 244 ==
LOC: JER 05:29 → JERBED 10:26 → J6S 14:04
PROVIDERS: ADMIT Internal Medicine; ATTEND Internal Medicine
PROC: 0DB78ZX Excision of Stomach, Pylorus, Via Natural or Artificial Opening Endoscopic, Diagnostic (ICD-10-PCS; principal; 2018-11-25 09:45)
DX: K57.91 Diverticulosis of intestine, part unspecified, without perforation or abscess with bleeding (principal); K25.9 Gastric ulcer, unspecified as acute or chronic, without hemorrhage or perforation; K29.60 Other gastritis without bleeding; F32.9 Major depressive disorder, single episode, unspecified; F41.9 Anxiety disorder, unspecified; Z88.0 Allergy status to penicillin
CPT/HCPCS: 36415; 74177-TC; 80053; 81003; 82272; 83690; 83735; 84100; 85025; 85027; 85610; 85730; 86850; 86900; 86901; 87086; 88305-TC; 99283-25; J7030; Q9967

== ENCOUNTER 2020-06-29 16:03 | Emergency (ER) | payer OTHER ==
[2020-06-29 16:17] VITALS: TEMP 97.9; BMI 28.2
[2020-06-29] MEDS ORDERED: IBUPROFEN 400 MG TABLET (FP) PO ONE ×2 (16:44→16:47)
[2020-06-29 17:01] VITALS: BP 144/100; PULSE 119
== END 2020-06-29 17:09 | disposition home or self-care (01) ==
LOC: JER 16:03
DX: S62.642A Nondisplaced fracture of proximal phalanx of right middle finger, initial encounter for closed fracture (principal); R00.0 Tachycardia, unspecified; I10 Essential (primary) hypertension
CPT/HCPCS: 73130-TC-LT-FY; 73130-TC-RT-FY; 93005; 93010; 99284-25

== ENCOUNTER 2021-05-03 17:36 | Emergency (ER) | payer OTHER ==
[2021-05-03 17:52] VITALS: TEMP 97.8; BMI 28.2
[2021-05-03] MEDS ORDERED: ACETAMINOPHEN 500 MG TABLET (FP) PO ONE (18:48)
[2021-05-03 19:18] LABS: BASO % 1.5 % (0-2.0); EOS % 2.4 % (0-4.5); HEMATOCRIT 41.4 % (35.4-49); HEMOGLOBIN 14.3 GM/dL (11.7-16.9); LYMPH % 42.6 % (8-40); MCH 30.3 pg (25.7-33.7); MCHC 34.6 g/dl (32.0-35.9); MEAN CELL VOLUME 87.5 fl (80-96); MEAN PLT VOLUME 8.1 fl (7.5-11.1); MONO % 6.4 % (3.8-10.2); NEUT % 47.1 % (42.8-82.8); PLATELET COUNT 298 10^3/uL (134-434); RBC 4.73 M/mm3 (4.00-5.60); RDW 13.8 % (11.9-15.9); WHITE BLOOD COUNT 7.3 K/mm3 (4.0-10.0)
[2021-05-03] MEDS ORDERED: ACETAMINOPHEN 325 MG TABLET (FP) ONE (19:26)
[2021-05-03 19:38] LABS: CHLORIDE 108 mmol/L (98-107); SODIUM 139 mmol/L (136-145)
[2021-05-03 19:40] LABS: CALCIUM 8.8 mg/dL (8.5-10.1)
[2021-05-03 19:41] LABS: ALBUMIN 3.9 g/dl (3.4-5.0); ANION GAP 6 MMOL/L (8-16); BLOOD UREA NITROGEN 17.1 mg/dL (7-18); CO2 25 mmol/L (21-32); GLUCOSE,RANDOM 115 mg/dL (74-106)
[2021-05-03 19:43] LABS: SGOT/AST 30 U/L (15-37); SGPT/ALT 51 U/L (13-61)
[2021-05-03 19:44] LABS: TOT PROT 7.2 g/dl (6.4-8.2)
[2021-05-03 19:46] LABS: BILIRUBIN,TOTAL 0.3 mg/dL (0.2-1)
[2021-05-03 19:47] LABS: ALK PHOS 82 U/L (45-117)
[2021-05-03] MEDS ORDERED: LIDOCAINE 5% TOPICAL PATCH TP ONE (20:13)
[2021-05-03] MEDS ORDERED: LIDOCAINE 5% TOPICAL PATCH ONE (20:36)
[2021-05-03 20:41] VITALS: BP 146/106; PULSE 96
[2021-05-03] MEDS ORDERED: METHOCARBAMOL 500 MG TABLET PO ONE (21:26)
[2021-05-03] MEDS ORDERED: METHOCARBAMOL 500 MG TABLET ONE (21:30)
[2021-05-03] MEDS ORDERED: LIDOCAINE PATCH REMOVAL MC SCH (22:00)
== END 2021-05-03 21:35 | disposition home or self-care (01) ==
LOC: JER 17:36
DX: S09.90XA Unspecified injury of head, initial encounter (principal); S30.0XXA Contusion of lower back and pelvis, initial encounter; M62.830 Muscle spasm of back; W00.0XXA Fall on same level due to ice and snow, initial encounter
CPT/HCPCS: 36415; 70450-TC; 71045-TC-FY; 71250-TC; 72125-TC; 72128-TC; 80053; 82550; 82553; 84484; 85025; 93005; 93010; 99285-25; C9803; U0003; U0005

== ENCOUNTER 2023-06-11 09:17 | Emergency (ER) | payer OTHER ==
[2023-06-11 09:27] VITALS: BP 146/100; PULSE 107; RESP 18; TEMP 97.9; BMI 28.2
[2023-06-11] MEDS ORDERED: ALBUTEROL SO4 2.5/IPRATROPIUM 0.5 INH SOL 3 ML VIAL.NEB. NEB ONE (10:05)
[2023-06-11] MEDS: ALBUTEROL SO4 2.5/IPRATROPIUM 0.5 INH SOL 3 ML VIAL.NEB. NEB ONE (10:09)
== END 2023-06-11 11:34 | disposition home or self-care (01) ==
LOC: JER 09:17
PROC: 3E0F7GC Introduction of Other Therapeutic Substance into Respiratory Tract, Via Natural or Artificial Opening (ICD-10-PCS; principal; 2023-06-11)
DX: R06.02 Shortness of breath (principal); R05.9 Cough, unspecified; R09.89 Other specified symptoms and signs involving the circulatory and respiratory systems; J45.40 Moderate persistent asthma, uncomplicated; Z20.822 Contact with and (suspected) exposure to COVID-19
CPT/HCPCS: 0241U-QW; 71046-TC-FY; 99284-25

== ENCOUNTER 2023-07-05 23:40 | Emergency (ER) | payer OTHER ==
[2023-07-05 23:50] VITALS: BP 142/98; PULSE 104; RESP 20; TEMP 98.4; BMI 28.2
== END 2023-07-06 00:59 | disposition home or self-care (01) ==
LOC: JERFT 23:40
DX: F32.A Depression, unspecified (principal); Z76.0 Encounter for issue of repeat prescription
CPT/HCPCS: 99281-25

== ENCOUNTER 2024-07-24 01:28 | Emergency (ER) | payer OTHER ==
[2024-07-24 01:36] VITALS: BP 150/110; PULSE 98; RESP 18; TEMP 98.1; BMI 28.2
== END 2024-07-24 02:07 | disposition home or self-care (01) ==
LOC: JER 01:28
DX: Z76.0 Encounter for issue of repeat prescription (principal)
CPT/HCPCS: 99281-25